=== PATIENT | female | born 1985 | race Caucasian/White ===

== ENCOUNTER 2017-05-28 11:03 | Emergency (ER) | payer BC ==
[2017-05-28 13:42] LABS: ABS Basophils 0 10^3/ul (0-0.2); ABS Eosinophils 0.1 10^3/ul (0-0.6); ABS Lymphocytes 1.6 10^3/ul (1.0-4.8); ABS Monocytes 0.8 10^3/ul (0-0.8); ABS Neutrophils 4.8 10^3/ul (1.5-7.7); ABS Nucleated RBC 0 10^3/ul; Hematocrit 42 % (35-47); Hemoglobin 13.8 g/dl (12.0-16.0); Lymphocyte % 21.9 % (25-47); Mean Corpuscular HGB Conc 33 g/dl (31-36); Mean Corpuscular Hemoglobin 32 pg (27-31); Mean Corpuscular Volume 97 fL (80-97); Mean Platelet Volume 8 um3 (7.4-10.4); Nucleated Red Blood Cells % 0; Platelet Count 173 10^3/ul (150-450); Red Blood Count 4.28 10^6/ul (4.0-5.4); Red Cell Distribution Width 13 % (10.5-15); White Blood Count 7.5 10^3/ul (3.5-10.8)
[2017-05-28] MEDS ORDERED: Ketorolac INJ* 30 MG/ML 1 ML VIAL IV ONE (13:53)
[2017-05-28 13:56] LABS: Urine Appearance Clear; Urine Blood 1+ (Negative); Urine Color Yellow; Urine Ketones 1+ (Negative); Urine Protein Negative (Negative); Urine Specific Gravity 1.017 (1.010-1.030); Urine Urobilinogen Negative (Negative)
[2017-05-28 14:00] LABS: EGFR Non-African American 124.7 (>60)
[2017-05-28] MEDS ORDERED: Ketorolac INJ* 30 MG/ML 1 ML VIAL ONE (14:16)
[2017-05-28 15:05] VITALS: BP 104/57
--- NOTE | 2017-05-28 15:41 | RAD ---
INDICATION: Right flank pain. COMPARISON: Correlation is made with a prior CT of the abdomen and pelvis from April 26, 2008. TECHNIQUE: Multiple real-time images of the right kidney were obtained. FINDINGS: The right kidney is normal in size shape and echogenicity. The kidney measured 9.4 x 3.0 x 4.9 cm. No significant focal abnormality or hydronephrosis was present. IMPRESSION: NEGATIVE EXAM, NO EVIDENCE FOR HYDRONEPHROSIS.
[2017-05-28] MEDS ORDERED: HYDROcodone/ACETAMIN 5-325 MG* 1 TAB PO ONE (16:36)
--- NOTE | 2017-05-28 17:24 | RAD ---
INDICATION: Left flank abdominal pain. COMPARISON: Comparison is made with a prior CT of the abdomen and pelvis from April 26 2008. TECHNIQUE: A CT scan of the abdomen and pelvis was performed without intravenous or oral contrast. Contiguous axial sections were obtained from the lung bases through the symphysis pubis. Images were reconstructed in the coronal and sagittal planes. FINDINGS: The lung bases are clear. No pleural effusion is present. The liver and spleen are within normal limits in size without significant focal abnormality on this noncontrast study. No calcified gallstones are seen. The pancreas appears to be within normal limits in size. The adrenal glands appear within normal limits. There is a small 1 mm calculus in the lower pole of the right kidney. There is prominent fat present in the central portions of both kidneys which appears to have progressed slightly from the prior exam most consistent with renal sinus lipomatosis. The left kidney is enlarged likely secondary to the fatty infiltration. No hydronephrosis is seen. The aorta is normal in caliber without significant calcific plaque. No significant enlarged retroperitoneal lymph nodes are seen. The stomach, small and large bowel appear nondistended. There are appendicoliths present. The appendix is otherwise unremarkable without evidence for inflammatory change. There are scattered diverticuli in the colon. There is no evidence for diverticulitis or colitis. The uterus is retroverted and slightly enlarged. There is a small amount of free intraperineal fluid in the cul-de-sac. No free intraperitoneal air is seen. No significant focal osseous abnormality is seen. IMPRESSION: 1. SMALL NONOBSTRUCTING RIGHT RENAL CALCULUS. 2. FINDINGS SUGGESTIVE OF RENAL SINUS LIPOMATOSIS WHICH HAS PROGRESSED SLIGHTLY FROM THE PRIOR STUDY. 3. NO EVIDENCE FOR ACUTE FINDING OR CAUSE FOR THE PATIENT'S ABDOMINAL PAIN IS SEEN.
--- NOTE | 2017-05-28 21:45 | ED ---
Jodi Jensen Julia, scribed for Carmelo Warner MD on 05/28/17 at 1343 . Abdominal Pain/Female - HPI Summary HPI Summary: This patient is a 32 year old F presenting to [facility] with a chief complaint of abdominal and back pain since 05/22/17. The patient rates the pain 7/10 in severity. She reports two recent urinalysis with trace amounts of blood. She was recently seen at Urgent Care and was diagnosed with muscle spasms and was given muscle relaxers. She saw her primary care physician, Dr. Jacome, on , who stated if symptoms persist she should come to the ED. Her LNMP was . There is a possibility of . - History of Current Complaint Chief Complaint: EDAbdPain Stated Complaint: FLANK PAIN Time Seen by Provider: 05/28/17 13:36 Hx Last Menstrual Period: 05/05/17 ?: No - Possibility of Onset/Duration: Lasting Weeks Timing: Weeks Pain Intensity: 7 Pain Scale Used: 0-10 Numeric Location: Diffuse - lower abdomen Radiates: Yes Radiates to: Back Associated Signs and Symptoms: Positive: Back Pain, Urinary Symptoms Allergies/Adverse Reactions: Allergies Allergy/AdvReac Type Severity Reaction Status Date / Time No Known Allergies Allergy Verified 05/18/13 22:12 PMH/Surg Hx/FS Hx/Imm Hx Opthamlomology History: Denies: Hx Legally Blind EENT History: Denies: Hx Deafness Psychiatric History: Reports: Hx Anxiety Infectious Disease History: No Infectious Disease History: Denies: Traveled Outside the [place] in Last 30 Days - Family History Known Family History: Positive: Diabetes, Other - kidney stones - Social History Alcohol Use: Occasionally Substance Use Type: Reports: None Smoking Status (MU): Never Smoked Tobacco Have You Smoked in the Last Year: No Review of Systems Positive: Abdominal Pain Positive: hematuria Positive: Myalgia - back pain All Other Systems Reviewed And Are Negative: Yes Physical Exam - Summary Physical Exam Summary: Appearance: The patient is well-nourished in no acute distress and in no acute pain. Skin: The skin is warm and dry and skin color reflects adequate perfusion. HEENT: The head is normocephalic and atraumatic. The pupils are equal and reactive. The conjunctivae are clear and without drainage. Nares are patent and without drainage. Mouth reveals moist mucous membranes and the throat is without erythema and exudate. The external ears are intact. The ear canals are patent and without drainage. The tympanic membranes are intact. Neck: the neck is supple with full range of motion and non-tender. There are no carotid bruits. There is no neck vein distension. Respiratory: Chest is non-tender. Lungs are clear to auscultation and breath sounds are symmetrical and equal. Cardiovascular: Heart is regular rate and rhythm. There is no murmur or rub auscultated. There is no peripheral edema and pulses are symmetrical and equal. Abdomen: The abdomen is soft with mild RLQ and R CVA tenderness. There are normal bowel sounds heard in all four quadrants and there is no organomegaly palpated. Musculoskeletal: There is R CVA tenderness noted. Extremities are non-tender with full range of motion. There is good capillary refill. There is no peripheral edema or calf tenderness elicited. Neurological: Patient is alert and oriented to person, place and time. The patient has symmetrical motor strength in all four extremities. Cranial nerves are grossly intact. Deep tendon reflexes are symmetrical and equal in all four extremities. Psychiatric: The patient has an appropriate affect and does not exhibit any anxiety or depression. Triage Information Reviewed: Yes Vital Signs On Initial Exam: Initial Vitals Temp Pulse Resp BP Pulse Ox 98.5 F 90 18 111/69 100 05/28/17 11:05 05/28/17 11:05 05/28/17 11:05 05/28/17 11:05 05/28/17 11:05 Vital Signs Reviewed: Yes Diagnostics - Vital Signs Vital Signs Temp Pulse Resp BP Pulse Ox 05/28/17 11:05 98.5 F 90 18 111/69 100 - Laboratory Lab Results: Lab Results 05/28/17 05/28/17 05/28/17 Range/Units 13:34 13:34 13:34 WBC 7.5 (3.5-10.8) 10^3/ul RBC 4.28 (4.0-5.4) 10^6/ul Hgb 13.8 (12.0-16.0) g/dl Hct 42 (35-47) % MCV 97 (80-97) fL MCH 32 H (27-31) pg MCHC 33 (31-36) g/dl RDW 13 (10.5-15) % Plt Count 173 (150-450) 10^3/ul MPV 8 (7.4-10.4) um3 Neut % (Auto) 64.5 (38-83) % Lymph % (Auto) 21.9 L (25-47) % [place] % (Auto) 11.1 H (0-7) % Eos % (Auto) 2.0 (0-6) % Baso % (Auto) 0.5 (0-2) % Absolute Neuts (auto) 4.8 (1.5-7.7) 10^3/ul Absolute Lymphs (auto) 1.6 (1.0-4.8) 10^3/ul Absolute Monos (auto) 0.8 (0-0.8) 10^3/ul Absolute Eos (auto) 0.1 (0-0.6) 10^3/ul Absolute Basos (auto) 0 (0-0.2) 10^3/ul Absolute Nucleated RBC 0 10^3/ul Nucleated RBC % 0 Sodium 132 L (133-145) mmol/L Potassium 4.0 (3.5-5.0) mmol/L Chloride 103 (101-111) mmol/L Carbon Dioxide 23 (22-32) mmol/L Anion Gap 6 (2-11) mmol/L BUN 11 (6-24) mg/dL Creatinine 0.56 (0.51-0.95) mg/dL Est GFR ( Amer) 160.3 (>60) Est GFR (Non-Af Amer) 124.7 (>60) BUN/Creatinine Ratio 19.6 (8-20) Glucose 85 (70-100) mg/dL Calcium 9.3 (8.6-10.3) mg/dL Total Bilirubin 0.70 (0.2-1.0) mg/dL AST 20 (13-39) U/L ALT 37 (7-52) U/L Alkaline Phosphatase 50 (34-104) U/L C-React Prot High Sens < 0.20 mg/L Total Protein 7.3 (6.4-8.9) g/dL Albumin 4.3 (3.2-5.2) g/dL Globulin 3.0 (2-4) g/dL Albumin/Globulin Ratio 1.4 (1-3) Lipase 21 (11.0-82.0) U/L Beta HCG, Quant < 0.60 mIU/mL Urine Color Yellow Urine Appearance Clear Urine pH 5.0 (5-9) Ur Specific [place] 1.017 (1.010-1.030) Urine Protein Negative (Negative) Urine Ketones 1+ A (Negative) Urine Blood 1+ A (Negative) Urine Nitrate Negative (Negative) Urine Bilirubin Negative (Negative) Urine Urobilinogen Negative (Negative) Ur Leukocyte Esterase Trace A (Negative) Urine WBC (Auto) Trace(0-5/hpf) (Absent) Urine RBC (Auto) Trace(0-2/hpf) (Absent) Ur Squamous Epith Cells Present A (Absent) Urine Bacteria Absent (Absent) Urine Glucose Negative (Negative) Urine Ascorbic Acid * A (Negative) Result Diagrams: 05/28/17 13:34 05/28/17 13:34 Lab Statement: Any lab studies that have been ordered have been reviewed, and results considered in the medical decision making process. - CT A/P CT Interpretation Completed By: Radiologist - 1. SMALL NONOBSTRUCTING RIGHT RENAL CALCULUS. 2. FINDINGS SUGGESTIVE OF RENAL SINUS LIPOMATOSIS WHICH HAS PROGRESSED SLIGHTLY FROM THE PRIOR STUDY. 3. NO EVIDENCE FOR ACUTE FINDING OR CAUSE FOR THE PATIENT'S ABDOMINAL PAIN IS SEEN. ED Physician has reviewed this report. - Additional Comments Diagnostic Additional Comments: Renal US reveals: NEGATIVE EXAM, NO EVIDENCE FOR HYDRONEPHROSIS. ED Physician has reviewed this report. Abdominal Pain Fem Course/Dx - Course Course Of Treatment: Ms. Albright presented with right flank and RLQ pain with only mild tenderness. She also had some mild left paralumber tenderness. Her W/U here was negative and I will treat her symptomatically and encourage close F/U. - Diagnoses Provider Diagnoses: Abdominal pain Discharge - Discharge Plan Condition: Stable Disposition: HOME Prescriptions: HYDROcodone/ACETAMIN 5-325 MG* [[place] 5-325 TAB*] 1 tab PO Q6H PRN #20 tab MDD 4 PRN Reason: Pain Patient Education Materials: Acute Abdominal Pain (ED) Referrals: Jacy Hood MD [Primary Care Provider] - 2 Days (Follow up with your primary care physician.) The documentation as recorded by the Jodi paul Julia accurately reflects the service I personally performed and the decisions made by me, Carmelo Warner MD.
== END 2017-05-28 18:10 | disposition home or self-care (01) ==
LOC: ED 11:03
DX: R10.31 Right lower quadrant pain (principal); N20.0 Calculus of kidney; F41.9 Anxiety disorder, unspecified
CPT/HCPCS: 36415; 74176; 76775; 80053; 81003; 81015; 83690; 84702; 85025; 86141; 87086; 96374; 99282; J1885

== ENCOUNTER 2017-09-17 17:41 | Emergency (ER) | payer BC ==
[2017-09-17 18:18] LABS: ABS Basophils 0 10^3/ul (0-0.2); ABS Eosinophils 0 10^3/ul (0-0.6); ABS Lymphocytes 1.8 10^3/ul (1.0-4.8); ABS Monocytes 0.8 10^3/ul (0-0.8); ABS Neutrophils 4.1 10^3/ul (1.5-7.7); ABS Nucleated RBC 0 10^3/ul; Eosinophil % 0.6 % (0-6); Hematocrit 36 % (35-47); Hemoglobin 12.4 g/dl (12.0-16.0); Lymphocyte % 26.4 % (25-47); Mean Corpuscular HGB Conc 34 g/dl (31-36); Mean Corpuscular Hemoglobin 33 pg (27-31); Mean Corpuscular Volume 97 fL (80-97); Nucleated Red Blood Cells % 0; Platelet Count 174 10^3/ul (150-450); Red Blood Count 3.72 10^6/ul (4.00-5.40); Red Cell Distribution Width 13 % (10.5-15); White Blood Count 6.7 10^3/ul (3.5-10.8)
--- NOTE | 2017-09-17 18:19 | ED ---
- HPI Summary HPI Summary: 32 year old female last menstrual period July 29 presents with vaginal bleeding and back pain since today. She admits to nauseous. She is a little bit dizzy. No vomiting. No diarrhea or constipation. No urinary symptoms. She states she does not have abdominal pain but has pain on left side of her back. No previous belly surgeries. She states that she soaked a pad in the past 2 hours. no injury. unsure what blood type is. - History of Current Complaint Chief Complaint: EDVaginalBleeding Stated Complaint: ABD PAIN/ BLEEDING/7WKS PREG. Time Seen by Provider: 09/17/17 17:58 Pain Intensity: 8 - Assessment Hx Now: Yes SAB: 0 IEA: 0 - Additional Pertinent History Maternal Blood Type and Rh: O Positive - Allergies/Home Medications Allergies/Adverse Reactions: Allergies Allergy/AdvReac Type Severity Reaction Status Date / Time No Known Allergies Allergy Verified 09/17/17 17:52 PMH/Surg Hx/FS Hx/Imm Hx Endocrine/Hematology History: Denies: Hx Anticoagulant Therapy Cardiovascular History: Denies: Hx Hypertension Sensory History: Denies: Hx Legally Blind, Hx Deafness Opthamlomology History: Denies: Hx Legally Blind Psychiatric History: Reports: Hx Anxiety Infectious Disease History: No Infectious Disease History: Denies: Traveled Outside the [place] in Last 30 Days - Family History Known Family History: Positive: Diabetes, Other - kidney stones - Social History Alcohol Use: Occasionally Substance Use Type: Reports: None Smoking Status (MU): Never Smoked Tobacco Have You Smoked in the Last Year: No Review of Systems Negative: Fever Negative: Chest Pain Negative: Shortness Of Breath Positive: Nausea, Other - vaginal bleeding. Negative: Abdominal Pain, Vomiting Positive: flank pain All Other Systems Reviewed And Are Negative: Yes Physical Exam - Physical Exam Triage Information Reviewed: Yes Vital Signs Reviewed: Yes Appearance: Positive: Well-Appearing Skin: Positive: Warm, Dry Head/Face: Positive: Normal Head/Face Inspection Eyes: Positive: Normal, Conjunctiva Clear ENT: Positive: Pharynx normal Respiratory/Lung Sounds: Positive: Clear to Auscultation, Breath Sounds Present Cardiovascular: Positive: Normal, RRR Abdomen Description: Positive: Nontender, Soft, Other: - tenderness left lower back Bowel Sounds: Positive: Present Pelvic Exam: External Exam Normal, Bimanual Exam Normal, No Cerv. Motion Tender , Blood, Other - os is closed with blood dripping from such Musculoskeletal: Positive: Normal Neurological: Positive: Normal Psychiatric: Positive: Normal Diagnostics - Vital Signs Vital Signs Temp Pulse Resp BP Pulse Ox 09/17/17 17:48 99.1 F 80 14 95/57 100 - Laboratory Result Diagrams: 09/17/17 18:12 09/17/17 18:12 Lab Statement: Any lab studies that have been ordered have been reviewed, and results considered in the medical decision making process. - Ultrasound No standard instances Ultrasound Interpretation: Positive (See Comments) - 1. There is a trace subchorionic bleed along the fundal margin of the gestational sac. 2. Otherwise single live intrauterine gestation with a crown-rump length yielding a gestational age of 6 weeks and 3 days. Ultrasound Interpretation Completed By: Radiologist Re-Evaluation - Re-Evaluation First Eval Re-Evaluation Time: 18:30 Change: Worse Comment: is now vomiting Second Eval Re-Evaluation Time: 19:54 Change: Improved Comment: nausea is less but not completely done Course/Dx - Course Course Of Treatment: 32 year old female last menstrual period July 29 presents with vaginal bleeding and back pain since today. She admits to nauseous. She is a little bit dizzy. No vomiting. No diarrhea or constipation. No urinary symptoms. She states she does not have abdominal pain but has pain on left side of her back. No previous belly surgeries. She states that she soaked a pad in the past 2 hours. no injury. unsure what blood type is. on exam has nontender abdomen. tenderness left side of back. wbc normal. h/h normal. hcg 42820. O positive blood type. u/s shows trace chorionic bleed. single live intruaterin gestation. corpus luetum on left which would explain back pain. will give reglan for nausea. will have follow up with ob to trend . patient understand and agrees with plan. - Differential Diagnosis/HQI/PQRI: Ectopic , Intrauterine , Ovarian Cyst - Diagnoses Provider Diagnoses: Intrauterine , Subchorionic bleed Discharge - Sign-Out/Discharge Documenting (check all that apply): Discharge/Admit/Transfer - Discharge Plan Condition: Good Disposition: HOME Patient Education Materials: Subchorionic Hemorrhage (ED) Referrals: Jacy Hood MD [Primary Care Provider] - Beatriz Ha MD [Medical Doctor] - Additional Instructions: take reglan every 6 hours for nausea Follow up with OBGYN as will need repeat HCG level drawn to trend Return to ED if develop any new or worsening symptoms - Billing Disposition and Condition Condition: GOOD Disposition: Home
[2017-09-17 18:30] LABS: INR 1.02 (0.77-1.02)
[2017-09-17] MEDS ORDERED: NS 0.9% 1000 ML* 1,000 ML IV ONE (18:32)
[2017-09-17 18:36] LABS: EGFR Non-African American 117.4 (>60)
[2017-09-17] MEDS ORDERED: Metoclopramide IV* 5 MG/ML 2 ML VIAL IV SLOW PU ONE (18:39)
[2017-09-17] MEDS ORDERED: diPHENhydraMINE IV* 50 MG/ML 1 ml VIAL (BENADRYL) IV ONE (19:40)
--- NOTE | 2017-09-17 19:52 | RAD ---
HISTORY: Back pain and vaginal bleeding in a female. Last menstrual period is reported to be July 29, 2017 yielding a gestational age of 7 weeks and 1 day COMPARISONS: None TECHNIQUE: Multiple transverse and longitudinal ultrasound images were obtained of the pelvis using grayscale, color flow, spectral and M-mode sonographic imaging. FINDINGS: UTERUS: The uterus is normal in shape, size, contour, and echotexture. GESTATION: There is a single live intrauterine gestation. The crown-rump length measures 0.6 cm yielding a gestational age of 6 weeks and 3 days. The mean gestational sac diameter measures 1.9 centimeters yielding a gestational age of 6 weeks and 6 days. There is a trace amount of subchorionic fluid along the fundal margin of the chorionic sac. cardiac motion is detected at a rate of 133 beats per minute. CUL-DE-SAC: There is no free fluid within the cul-de-sac. RIGHT OVARY: The right ovary measures 3.2 x 1.5 x 2.9 cm. LEFT OVARY: The left ovary measures 3.1 x 2.1 x 3.5 cm. And the left ovary there is an anechoic and low echogenicity structure measuring 1.5 cm in greatest dimension most consistent with a corpus luteum. IMPRESSION: 1. There is a trace subchorionic bleed along the fundal margin of the gestational sac. 2. Otherwise single live intrauterine gestation with a crown-rump length yielding a gestational age of 6 weeks and 3 days.
[2017-09-17 21:11] VITALS: BP 95/59
== END 2017-09-17 20:50 | disposition home or self-care (01) ==
LOC: ED 17:41
DX: O20.9 Hemorrhage in early pregnancy, unspecified (principal); R11.0 Nausea; R42 Dizziness and giddiness; Z3A.01 Less than 8 weeks gestation of pregnancy; F41.9 Anxiety disorder, unspecified; Z84.1 Family history of disorders of kidney and ureter
CPT/HCPCS: 36415; 76817; 80053; 84702; 85025; 85610; 85730; 86900; 86901; 87480; 87491; 87510; 87591; 87661; 96374; 96375; 99283; J1200; J2765

== ENCOUNTER 2017-09-27 09:42 | Emergency (ER) | payer BC ==
[2017-09-27] MEDS ORDERED: NS 0.9% 1000 ML* 1,000 ML IV ONE ×2 (10:00→11:09)
[2017-09-27] MEDS ORDERED: Ondansetron ODT TAB* 4 MG PO ONE (10:06)
[2017-09-27] MEDS ORDERED: Ondansetron INJ* 2 MG/ML VIAL ONE (10:08)
[2017-09-27 10:17] LABS: ABS Basophils 0 10^3/ul (0-0.2); ABS Eosinophils 0.2 10^3/ul (0-0.6); ABS Lymphocytes 1.7 10^3/ul (1.0-4.8); ABS Monocytes 0.8 10^3/ul (0-0.8); ABS Neutrophils 4.6 10^3/ul (1.5-7.7); ABS Nucleated RBC 0 10^3/ul; Eosinophil % 2.2 % (0-6); Hematocrit 40 % (35-47); Hemoglobin 13.6 g/dl (12.0-16.0); Lymphocyte % 23.3 % (25-47); Mean Corpuscular HGB Conc 34 g/dl (31-36); Mean Corpuscular Hemoglobin 33 pg (27-31); Mean Corpuscular Volume 97 fL (80-97); Mean Platelet Volume 8.1 um3 (7.4-10.4); Nucleated Red Blood Cells % 0.1; Platelet Count 209 10^3/ul (150-450); Red Blood Count 4.15 10^6/ul (4.00-5.40); Red Cell Distribution Width 12 % (10.5-15); White Blood Count 7.2 10^3/ul (3.5-10.8)
[2017-09-27 10:27] LABS: Urine Appearance Cloudy; Urine Blood Negative (Negative); Urine Color Yellow; Urine Ketones 1+ (Negative); Urine Protein 1+(30 mg/dL) (Negative); Urine Red Blood Cell 1+(3-5/hpf) (Absent); Urine Specific Gravity 1.016 (1.010-1.030); Urine Urobilinogen Positive (Negative); Urine White Blood Cell Trace(0-5/hpf) (Absent)
[2017-09-27 10:34] LABS: EGFR Non-African American 135.8 (>60)
[2017-09-27 12:23] VITALS: BP 105/59
--- NOTE | 2017-09-27 13:03 | ED ---
- HPI Summary HPI Summary: Pt. is a 32 year-old female who presents emergency department for nausea and vomiting times several days. Patient is currently 8 weeks gestation. She was seen in the ER 10 days ago abdominal pain and 10 days ago and had a confirmed intrauterine ultrasound done at that time. She was rx reglan at her last ER visit which is not improving symptoms. She has also tried OTC benadryl and unisom which she states are not helping. Today she denies any abdominal pain /cramping, vaginal bleeding or discharge. Symptoms are moderate in severity. No current modifying factors. - History of Current Complaint Chief Complaint: EDGeneral Stated Complaint: POSS DEHYDRATION/ 8 WKS PREG Time Seen by Provider: 09/27/17 10:00 Hx Obtained From: Patient Pain Intensity: 0 - Assessment Hx Now: Yes SAB: 0 IEA: 0 - Additional Pertinent History Maternal Blood Type and Rh: O Positive - Allergies/Home Medications Allergies/Adverse Reactions: Allergies Allergy/AdvReac Type Severity Reaction Status Date / Time No Known Allergies Allergy Verified 09/27/17 09:54 PMH/Surg Hx/FS Hx/Imm Hx Previously Healthy: Yes Endocrine/Hematology History: Denies: Hx Anticoagulant Therapy Cardiovascular History: Denies: Hx Hypertension Sensory History: Denies: Hx Legally Blind, Hx Deafness Opthamlomology History: Denies: Hx Legally Blind Psychiatric History: Reports: Hx Anxiety Infectious Disease History: No Infectious Disease History: Denies: Traveled Outside the [place] in Last 30 Days - Family History Known Family History: Positive: Diabetes, Other - kidney stones - Social History Alcohol Use: None Substance Use Type: Reports: None Smoking Status (MU): Never Smoked Tobacco Have You Smoked in the Last Year: No Review of Systems Constitutional: Negative Positive: Vomiting, Nausea. Negative: Abdominal Pain, Diarrhea Genitourinary: Negative Positive: burning, dysuria, discharge, flank pain All Other Systems Reviewed And Are Negative: Yes Physical Exam - Physical Exam Triage Information Reviewed: Yes Vital Signs Reviewed: Yes Appearance: Positive: Well-Appearing - Pt. lying in bed in NAD. Skin: Positive: Warm, Dry Head/Face: Positive: Normal Head/Face Inspection Eyes: Positive: Normal Neck: Positive: Supple Respiratory/Lung Sounds: Positive: Clear to Auscultation, Breath Sounds Present Cardiovascular: Positive: Normal, RRR Abdomen Description: Positive: Nontender, Soft Neurological: Positive: Normal, CN Intact II-III Psychiatric: Positive: Affect/Mood Appropriate Diagnostics - Vital Signs Vital Signs Temp Pulse Resp BP Pulse Ox 09/27/17 12:32 99.1 F 76 15 105/59 99 09/27/17 12:17 76 105/59 99 09/27/17 12:00 79 100 09/27/17 11:47 74 89/62 100 09/27/17 11:16 70 104/59 100 09/27/17 11:00 62 100 09/27/17 10:47 73 96/47 100 09/27/17 10:18 65 100 09/27/17 10:17 61 100/58 100 09/27/17 09:45 99.1 F 90 18 104/64 100 - Laboratory Lab Results: Lab Results 09/27/17 09/27/17 09/27/17 Range/Units 10:04 10:08 10:08 WBC 7.2 (3.5-10.8) 10^3/ul RBC 4.15 (4.00-5.40) 10^6/ul Hgb 13.6 (12.0-16.0) g/dl Hct 40 (35-47) % MCV 97 (80-97) fL MCH 33 H (27-31) pg MCHC 34 (31-36) g/dl RDW 12 (10.5-15) % Plt Count 209 (150-450) 10^3/ul MPV 8.1 (7.4-10.4) um3 Neut % (Auto) 63.5 (38-83) % Lymph % (Auto) 23.3 L (25-47) % [place] % (Auto) 10.5 H (0-7) % Eos % (Auto) 2.2 (0-6) % Baso % (Auto) 0.5 (0-2) % Absolute Neuts (auto) 4.6 (1.5-7.7) 10^3/ul Absolute Lymphs (auto) 1.7 (1.0-4.8) 10^3/ul Absolute Monos (auto) 0.8 (0-0.8) 10^3/ul Absolute Eos (auto) 0.2 (0-0.6) 10^3/ul Absolute Basos (auto) 0 (0-0.2) 10^3/ul Absolute Nucleated RBC 0 10^3/ul Nucleated RBC % 0.1 Sodium 135 (135-145) mmol/L Potassium 3.7 (3.5-5.0) mmol/L Chloride 102 (101-111) mmol/L Carbon Dioxide 25 (22-32) mmol/L Anion Gap 8 (2-11) mmol/L BUN 8 (6-24) mg/dL Creatinine 0.52 (0.51-0.95) mg/dL Est GFR ( Amer) 164.3 (>60) Est GFR (Non-Af Amer) 135.8 (>60) BUN/Creatinine Ratio 15.4 (8-20) Glucose 105 H (70-100) mg/dL Calcium 9.5 (8.6-10.3) mg/dL Urine Color Yellow Urine Appearance Cloudy Urine pH 7.0 (5-9) Ur Specific [place] 1.016 (1.010-1.030) Urine Protein 1+(30 mg/dl) A (Negative) Urine Ketones 1+ A (Negative) Urine Blood Negative (Negative) Urine Nitrate Negative (Negative) Urine Bilirubin Negative (Negative) Urine Urobilinogen Positive A (Negative) Ur Leukocyte Esterase Negative (Negative) Urine WBC (Auto) Trace(0-5/hpf) (Absent) Urine RBC (Auto) 1+(3-5/hpf) A (Absent) Ur Squamous Epith Cells Present A (Absent) Urine Bacteria Absent (Absent) Urine Glucose Negative (Negative) Result Diagrams: 09/27/17 10:08 09/27/17 10:08 Lab Statement: Any lab studies that have been ordered have been reviewed, and results considered in the medical decision making process. Course/Dx - Course Course Of Treatment: Patient presenting to the ER for nausea and vomiting in early . She is afebrile with stable vital signs. She has been taking Reglan, Benadryl, Unisom with no relief. She has no abdominal pain today, vaginal bleeding or discharge. Will hydrate and check basic labs. Given a dose of Zofran. CBC and BMP are unremarkable. Urinalysis shows small ketones, RBCs, epi cells, will send for culture. She was hydrated with 2 L of normal saline. On reexamination she is tolerating by mouth fluids and is feeling better. Results were discussed. Discharge her home with a daily prescription of Zofran. Advised to call her OB for a close follow-up appointment. To return to the ER if symptoms change or worsen. Patient understands and agrees with plan. - Differential Diagnosis/HQI/PQRI: Intrauterine , Hyperemesis Gravidarum , UTI, Vaginal Bleeding - Diagnoses Provider Diagnoses: Hyperemesis gravidarum Discharge - Sign-Out/Discharge Documenting (check all that apply): Patient Departure - Discharge Plan Condition: Good Disposition: HOME Prescriptions: Ondansetron HCl [Zofran] 4 mg PO Q6H #12 tablet Patient Education Materials: Hyperemesis Gravidarum (ED) Referrals: Jacy Hood MD [Primary Care Provider] - Additional Instructions: Call your OB tomorrow to schedule a sooner appointment Take zofran as directed Increased fluids Return to ER if symptoms change or worsen - Billing Disposition and Condition Condition: GOOD Disposition: Home
== END 2017-09-27 12:32 | disposition home or self-care (01) ==
LOC: ED 09:42
DX: O21.0 Mild hyperemesis gravidarum (principal); R30.0 Dysuria; Z3A.08 8 weeks gestation of pregnancy; F41.9 Anxiety disorder, unspecified; Z83.3 Family history of diabetes mellitus; Z84.1 Family history of disorders of kidney and ureter
CPT/HCPCS: 36415; 80048; 81003; 81015; 85025; 87086; 96360; 99283; J2405

== ENCOUNTER 2017-10-08 09:27 | Day surgery (SDC) | payer BC, OTHER ==
[~2017-10-08 09:27] MED LIST: Buffered Lidocaine 0.9% SYRIN* 5 ML/SYR SYRINGE INTRADERM ONE
[2017-10-08] MEDS ORDERED: Ketorolac INJ* 30 MG/ML 1 ML VIAL ONE (09:30)
[2017-10-08 10:02] LABS: ABS Basophils 0 10^3/ul (0-0.2); ABS Eosinophils 0.1 10^3/ul (0-0.6); ABS Lymphocytes 1.5 10^3/ul (1.0-4.8); ABS Monocytes 0.8 10^3/ul (0-0.8); ABS Neutrophils 6.3 10^3/ul (1.5-7.7); ABS Nucleated RBC 0 10^3/ul; Eosinophil % 1.5 % (0-6); Hematocrit 38 % (35-47); Hemoglobin 13.2 g/dl (12.0-16.0); Lymphocyte % 17.3 % (25-47); Mean Corpuscular HGB Conc 35 g/dl (31-36); Mean Corpuscular Hemoglobin 33 pg (27-31); Mean Corpuscular Volume 96 fL (80-97); Nucleated Red Blood Cells % 0; Platelet Count 212 10^3/ul (150-450); Red Blood Count 3.95 10^6/ul (4.00-5.40); Red Cell Distribution Width 13 % (10.5-15); White Blood Count 8.8 10^3/ul (3.5-10.8)
[2017-10-08] MEDS ORDERED: Lidocaine 1%* 5 ML VIAL ONE (10:17)
[2017-10-08] MEDS ORDERED: fentaNYL* 50 MCG/ML 2 ML VIAL (100 MCG VIAL) ONE ×2 (10:25→10:31)
[2017-10-08] MEDS ORDERED: Propofol* 10 MG/ML 20 ML BTL IV PUSH ONE (10:28)
[2017-10-08] MEDS ORDERED: Lidocaine 2% PF * 5 ML VIAL ONE (10:28)
[2017-10-08] MEDS ORDERED: Midazolam* 1 MG/ML 2 ML VIAL (2 MG) ONE (10:31)
[2017-10-08] MEDS ORDERED: Propofol* 500 MG/50 ML BTL ONE (10:33)
[2017-10-08] MEDS ORDERED: Scopolamine 1.5 mg* PATCH ONE (10:51)
[2017-10-08] MEDS ORDERED: oxyCODONE/Acetamin 5/325 MG* TAB ONE (12:10)
[2017-10-08 13:04] VITALS: BP 96/62
--- NOTE | 2017-10-08 21:56 | OP ---
OPERATIVE REPORT: DATE OF OPERATION: 10/08/17 DATE OF : 83 SURGEON: Wilber Matos MD ANESTHESIA: General endotracheal tube. PRE-OP DIAGNOSIS: Missed . POST-OP DIAGNOSIS: Missed . OPERATIVE PROCEDURE: Dilation and curettage. ESTIMATED BLOOD LOSS: 50 cc. SPECIMEN: Includes products of conception. FINDINGS: On exam under anesthesia, the uterus was retroverted. No adnexal masses. Cervix, vagina, and vulva appeared normal. DESCRIPTION OF PROCEDURE: The patient identified, procedure identified as a D and C. The patient wa s taken to the operating room, prepped and draped in the usual fashion in dorsal lithotomy position u nder general anesthesia. Two single-tooth tenaculum were placed on the anterior lip of the cervix. Cervix was dilated up to a #30 Jeremiah dilator. The suction curette was inserted and suction curettage performed. A sharp curette was inserted and sharp curettage performed until a gritty sensation was f elt throughout the circumference. The suction curette was reinserted and no further tissue was obtai luci. Good hemostasis was verified. All instruments were removed from the vagina and the patient ret urned to recovery room in stable condition. All sponge and instrument counts were correct. [id number]/[facility] #: [id number]
== END 2017-10-08 13:20 | disposition home or self-care (01) ==
LOC: OR 09:27
PROVIDERS: ATTEND Obstetrics & Gynecology
DX: O02.1 Missed abortion (principal); F41.9 Anxiety disorder, unspecified; Z87.442 Personal history of urinary calculi; Z87.891 Personal history of nicotine dependence
CPT/HCPCS: 36415; 85025; 86850; 86900; 86901; 88305; A9270-GY; J1885; J2250; J2704; J3010

== ENCOUNTER 2018-03-02 09:43 | Emergency (ER) | payer BC, OTHER ==
--- NOTE | 2018-03-02 11:40 | UC ---
Complaint Female HPI - HPI Summary HPI Summary: 32 y/o female presents to the urgent care c/o left ear pain since Thursday and frequency and burning on urination since Thursday02/26/2018. Pt reports burning w/ urination is mild. But the ear pain was severe last night, 09/22. She took and Ibuprofen 600mg PO yesterday and this morning. Pt report she had a miscarriage in 08/2017. She states Hx of uti and pyelonephritis in the past. She has seen Urologist Dr Grant for hematuria and has a f/u appt in 05/2018. Pt denies fever, dizziness, NASCIMENTO, SOB, chest pain, abdominal pain,pelvic pain, flank pain, Vaginal discharge, N/v/d, Hx of STD's. LMP: 02/17/2018 w/ regular menstrual cycles. - History Of Current Complaint Chief Complaint: UCEar Stated Complaint: EAR PAIN Time Seen by Provider: 03/02/18 11:16 Hx Obtained From: Patient Hx Last Menstrual Period: 02/17/18 ?: No Onset/Duration: Gradual Onset, Lasting Days - 5 days, Still Present, Worse Since - 3 days w/ RT ear pain Timing: Intermittent, Lasting Seconds Severity Initially: Mild Severity Currently: Moderate Pain Intensity: 7 - ear pain Pain Scale Used: 0-10 Numeric Character: Burning Aggravating Factor(s): Urination Alleviating Factor(s): Position Associated Signs And Symptoms: Positive: Negative. Negative: Fever, Back Pain, Vaginal Bleeding/Discharge, Vaginal Discharge, Nausea, Vomiting(# Of Episodes =) , Genital Swelling, Genital Blisters, Retained Foregin Body (Specify) - Risk Factors Ectopic Risk Factor: Negative Ovarian Torsion Risk Factor: Negative - Allergies/Home Medications Allergies/Adverse Reactions: Allergies Allergy/AdvReac Type Severity Reaction Status Date / Time No Known Allergies Allergy Verified 03/02/18 10:06 Home Medications: Home Medications clonazePAM [Clonazepam] 0.5 mg PO 03/02/18 [History] PMH/Surg Hx/FS Hx/Imm Hx Previously Healthy: Yes Respiratory History: Asthma - controlled Other History Of: Negative For: Anticoagulant Therapy - Surgical History Surgical History: None - Family History Known Family History: Positive: Hypertension, Diabetes, Other - kidney stones - Social History Occupation: Employed Full-time Lives: With Family Alcohol Use: Occasionally Substance Use Type: None Smoking Status (MU): Never Smoked Tobacco Have You Smoked in the Last Year: No - Immunization History Most Recent Influenza Vaccination: 01/26 Most Recent Tetanus Shot: 02/25 Most Recent Pneumonia Vaccination: na Review of Systems All Other Systems Reviewed And Are Negative: Yes Constitutional: Positive: Negative Skin: Positive: Negative Eyes: Positive: Negative ENT: Positive: Ear Ache - RT ear pain, Nasal Discharge - clear, Sinus Congestion Respiratory: Positive: Negative Cardiovascular: Positive: Negative Gastrointestinal: Positive: Negative Genitourinary: Positive: Dysuria, Frequency, Urgency Motor: Positive: Negative Neurovascular: Positive: Negative Musculoskeletal: Positive: Negative Neurological: Positive: Negative Psychological: Positive: Negative Is Patient Immunocompromised?: No Physical Exam - Summary Physical Exam Summary: VITAL SIGNS: Reviewed. GENERAL: Patient is a well developed and nourished thin female who is sitting comfortable in the examining table. Patient is not in any acute respiratory distress. HEAD AND FACE: No signs of trauma. No ecchymosis, hematomas or skull depressions. No sinus tenderness. EYES: PERRLA, EOMI x 2, No injected conjunctiva, clear watery eyes, no nystagmus. No photophobia. EARS: Hearing grossly intact. Ear canals and RT TM injected w/ erythema, no drainage obeserve. LF TM WNL. MOUTH: pharynx with no erythema, no exudates,no palatal petechiae. no B/L tonsillar enlargement Uvula in midline. NECK: Supple, trachea is midline, no lymphadenopathy, no JVD, no carotid bruit, no c-spine tenderness, neck with full ROM. CHEST: Symmetric, no tenderness at palpation LUNGS: Clear to auscultation bilaterally. No wheezing or crackles. CVS: Regular rate and rhythm, S1 and S2 present, no murmurs or gallops appreciated. ABDOMEN: Soft, non-tender. No signs of distention. No rebound no guarding, and no masses palpated. Bowel sounds are normal. BACK:no scoliosis or lesions, non tender to palpation, No B/L CVA tenderness EXTREMITIES: FROM in all major joints, no edema, no cyanosis or clubbing. NEURO: Alert and oriented x 3. No acute neurological deficits. Speech is normal and follows commands. SKIN: Dry and warm Triage Information Reviewed: Yes Vital Signs: Initial Vital Signs Temp 95.8 F 03/02/18 10:02 Pulse 75 03/02/18 10:02 Resp 18 03/02/18 10:02 BP 108/57 03/02/18 10:02 Pulse Ox 100 03/02/18 10:02 Complaint Female Dx - Course Course Of Treatment: 32 y/o female presents to the urgent care c/o left ear pain since Thursday02/28/2018 and frequency and burning on urination since Thursday02/26/2018. Pt reports burning w/ urination is mild. But the ear pain was severe last night, 09/22. She took and Ibuprofen 600mg PO yesterday and this morning. Pt report she had a miscarriage in 08/2017. She states Hx of uti and pyelonephritis in the past. She has seen Urologist Dr Grant for hematuria and has a f/u appt in 05/2018. Pt denies fever, dizziness, NASCIMENTO, SOB, chest pain, abdominal pain,pelvic pain, flank pain, Vaginal discharge, N/v/d, Hx of STD's. LMP: 02/17/2018 w/ regular menstrual cycles. Pt w/ Dysuria and left otitis Media on examination. UA ordered: Ptotein; trace, glucose;trace, ketones;3+, blood 1+ and bilirubin1+. FSmg/dl. Pt Strongly advised to increase hydration since ketone present. Pt is hemodynamically stable, No CVA tenderness and is being managed by urologyst DR Grant for her hematuria. Pt advised to f/u w/ him in 1 week for further management. Pt Rx Pyridium PO for dysuria and Amoxicillin PO for her otitis Media. Urine sent for culture to r/o any abnormality. D/c instructions explained. Pt understood and agreed w/ plan of care. - Differential Dx/Diagnosis Differential Diagnosis/HQI/PQRI: Cervicitis, Renal Colic, Ureteral Stone, Urinary Tract Infection, Other - otitis externa, otitis media, ear perforation, cerumen impaction, URI Provider Diagnosis: Otitis media, left, Dysuria, Hematuria Discharge - Sign-Out/Discharge Documenting (check all that apply): Patient Departure - d/c home All imaging exams completed and their final reports reviewed: No Studies - Discharge Plan Condition: Stable Disposition: HOME Prescriptions: Amoxicillin PO (*) [Amoxicillin 400 MG/5 ML SUSP*] 11 ml PO BID #154 ml Phenazopyridine TAB* [Pyridium 100 mg TAB*] 100 mg PO TID #6 tab Patient Education Materials: Ear Infection (ED), Hematuria (ED), Dysuria (ED) Referrals: Jacy Hood MD [Primary Care Provider] - 3 Days Malik Gunn MD [Medical Doctor] - 1 Week Additional Instructions: 1- Please Pyridium 100 mg PO TID x 2 days to alleviate urinary symptoms. INCREASE FLUID INTAKE SINCE YOUR URINE PRESENTS W/ KETONES, drink cranberry juice. 2-Take Amoxicillin PO to alleviate Otitis Media. Continue taken Ibuprofen PO after meals to alleviate otalgia. 3- You rurine presents w/ hematuria, protein and glucose. Please f/u w/ your Urologist DR Gunn in 1 week for further evaluation and treatment. 4- Urine sent for culture if any abnormality, you will be notified for further treatment. 5-If symptoms do not improve please return to the urgent care or f/u with her PCP. - Billing Disposition and Condition Condition: STABLE Disposition: Home
[2018-03-02 12:03] VITALS: BP 99/61
== END 2018-03-02 13:07 | disposition home or self-care (01) ==
LOC: UCEAST 09:43
DX: H66.92 Otitis media, unspecified, left ear (principal); R30.0 Dysuria; R31.9 Hematuria, unspecified
CPT/HCPCS: 81003; 84702; 87086; 99212; G0463

== ENCOUNTER 2018-03-30 16:51 | Observation (INO) | payer OTHER ==
[2018-03-30] MEDS ORDERED: NS 0.9% 1000 ML* 1,000 ML IV ONE ×2 (18:41→21:11)
[2018-03-30] MEDS ORDERED: Morphine VIAL* 10 MG/ML 1 ML VIAL IV ONE ×2 (18:41→21:11)
[2018-03-30] MEDS ORDERED: Ondansetron INJ* 2 MG/ML VIAL IV ONE (18:41)
[2018-03-30 19:04] LABS: Urine Color Yellow
[2018-03-30 19:06] LABS: Urine Appearance Clear; Urine Bacteria Absent (Absent); Urine Bilirubin Negative (Negative); Urine Blood 1+ (Negative); Urine Glucose Negative (Negative); Urine Ketones Negative (Negative); Urine Nitrite Negative (Negative); Urine Protein Negative (Negative); Urine Red Blood Cell 2+(6-10/hpf) (Absent); Urine Specific Gravity 1.025 (1.010-1.030); Urine Urobilinogen Positive (Negative); Urine White Blood Cell Trace(0-5/hpf) (Absent)
[2018-03-30 19:06] LABS: ABS Basophils 0.1 10^3/ul (0-0.2); ABS Eosinophils 0.1 10^3/ul (0-0.6); ABS Lymphocytes 2.2 10^3/ul (1.0-4.8); ABS Monocytes 1.2 10^3/ul (0-0.8); ABS Neutrophils 7.7 10^3/ul (1.5-7.7); ABS Nucleated RBC 0 10^3/ul; Hematocrit 35 % (35-47); Hemoglobin 11.7 g/dl (12.0-16.0); Lymphocyte % 19.3 %; Mean Corpuscular HGB Conc 34 g/dl (31-36); Mean Corpuscular Hemoglobin 32 pg (27-31); Mean Corpuscular Volume 97 fL (80-97); Mean Platelet Volume 8.1 fL (7.4-10.4); Nucleated Red Blood Cells % 0; Platelet Count 213 10^3/ul (150-450); Red Blood Count 3.59 10^6/ul (4.00-5.40); Red Cell Distribution Width 13 % (10.5-15); White Blood Count 11.2 10^3/ul (3.5-10.8)
[2018-03-30 19:29] LABS: Albumin 4.2 g/dL (3.2-5.2); BUN/Creatinine Ratio 25.4 (8-20); EGFR Non-African American 117.4 (>60); Globulin 2.1 g/dL (2-4); Potassium 3.7 mmol/L (3.5-5.0); Total Bilirubin 0.7 mg/dL (0.2-1.0); Total Protein 6.3 g/dL (6.4-8.9)
[2018-03-30 19:31] LABS: HCG Pregnancy 1174.88 mIU/mL
[2018-03-30 19:54] LABS: C Reactive Protein 1.21 mg/L (<8.01)
[2018-03-30] MEDS ORDERED: KETAMINE HCL* 50 MG/ML 10 ML VIAL ONE (23:16)
[2018-03-30] MEDS ORDERED: Midazolam* 1 MG/ML 5 ML VIAL (5 MG) ONE (23:16)
[2018-03-30] MEDS ORDERED: Cisatracurium* 2 MG/ML MDV 5 ML ONE (23:16)
[2018-03-30] MEDS ORDERED: Ondansetron INJ* 2 MG/ML VIAL ONE (23:16)
[2018-03-30] MEDS ORDERED: Lidocaine 2% PF * 5 ML VIAL ONE (23:16)
[2018-03-30] MEDS ORDERED: Ketorolac INJ* 30 MG/ML 1 ML VIAL ONE (23:16)
[2018-03-30] MEDS ORDERED: fentaNYL* 50 MCG/ML 2 ML VIAL (100 MCG VIAL) ONE (23:16)
[2018-03-30] MEDS ORDERED: Propofol* 10 MG/ML 20 ML BTL ONE (23:16)
[2018-03-30] MEDS ORDERED: Dexamethasone IV* 4 MG/ML 1 ML (4 MG) ONE (23:16)
[2018-03-30] MEDS ORDERED: ceFOXitin 2 GM IVPREMIX* 2 GM/50 ML BAG ONE (23:17)
[2018-03-30] MEDS ORDERED: Scopolamine 1.5 mg* PATCH ONE (23:28)
[2018-03-30] MEDS ORDERED: Bupivacaine 0.5%* 50 ML VIAL ONE (23:37)
--- NOTE | 2018-03-30 23:38 | ED ---
Abdominal Pain/Female - HPI Summary HPI Summary: Patient complains of pelvic and umbilical gianna pain that radiates to back starting today, also complains of some brown vaginal discharge yesterday and today. Abdominal pain is constant, worse with movement, 10/10, sharp. Denies prior history of same pain. Denies fever, cough, sore throat, CP, SOB, N/V/D, change in urine, change in BM, vaginal pain. LMP 1 week ago. Sexually active but does not use contraception. Abdominal surgical history includes D&C recently. - History of Current Complaint Chief Complaint: EDAbdPain Stated Complaint: ABD PAIN Time Seen by Provider: 03/30/18 18:21 Hx Obtained From: Patient Hx Last Menstrual Period: 02/17/18 Onset/Duration: Sudden Onset Timing: Constant Severity Initially: Severe Severity Currently: Severe Pain Intensity: 10 Pain Scale Used: 0-10 Numeric Location: Suprapubic, Umbilical Radiates: Yes Radiates to: Back Character: Sharp Aggravating Factor(s): Movement Alleviating Factor(s): Position Associated Signs and Symptoms: Positive: Back Pain, Vaginal Discharge Allergies/Adverse Reactions: Allergies Allergy/AdvReac Type Severity Reaction Status Date / Time No Known Allergies Allergy Verified 03/30/18 17:06 Home Medications: Home Medications Cyclobenzaprine (NF) [Cyclobenzaprine 5 MG (NF)] 5 - 10 mg PO BEDTIME PRN [History Confirmed 03/30/18] clonazePAM TAB(*) [KlonoPIN TAB(*)] 0.5 mg PO BID PRN MDD 1 mg 03/30/18 [ History Confirmed 03/30/18] PMH/Surg Hx/FS Hx/Imm Hx Endocrine/Hematology History: Denies: Hx Anticoagulant Therapy Cardiovascular History: Denies: Hx Cardiac Arrest, Hx Hypertension Respiratory History: Reports: Other Respiratory Problems/Disorders - upper respiratory infection- recently resolved History: Reports: Hx Kidney Stones - right kidney Musculoskeletal History: Reports: Hx Arthritis, Hx Tendonitis - left wrist Sensory History: Denies: Hx Contacts or Glasses, Hx Legally Blind, Hx Deafness, Hx Hearing Aid Opthamlomology History: Denies: Hx Contacts or Glasses, Hx Legally Blind Neurological History: Denies: Hx Developmental Delay Psychiatric History: Reports: Hx Anxiety - Cancer History Hx Chemotherapy: No Infectious Disease History: No Infectious Disease History: Denies: Traveled Outside the [place] in Last 30 Days - Family History Known Family History: Positive: Hypertension, Diabetes, Other - kidney stones - Social History Alcohol Use: Occasionally Substance Use Type: Reports: None Smoking Status (MU): Never Smoked Tobacco Have You Smoked in the Last Year: No Review of Systems Constitutional: Negative Eyes: Negative ENT: Negative Cardiovascular: Negative Respiratory: Negative Positive: Abdominal Pain Genitourinary: Negative Musculoskeletal: Negative Skin: Negative Neurological: Negative Psychological: Normal All Other Systems Reviewed And Are Negative: Yes Physical Exam - Summary Physical Exam Summary: Abdomen tender to palpation right lower quadrant, pelvic and umbilical areas. No guarding or peritoneal signs. Physical exam otherwise unremarkable. Triage Information Reviewed: Yes Vital Signs On Initial Exam: Initial Vitals Temp Pulse Resp BP Pulse Ox 99.4 F 109 16 117/97 98 03/30/18 17:02 03/30/18 17:02 03/30/18 17:02 03/30/18 17:02 03/30/18 17:02 Vital Signs Reviewed: Yes Appearance: Positive: Well-Appearing Skin: Positive: Warm Head/Face: Positive: Normal Head/Face Inspection Eyes: Positive: Normal Neck: Positive: Supple Respiratory/Lung Sounds: Positive: Clear to Auscultation Cardiovascular: Positive: Normal Abdomen Description: Positive: Other: Musculoskeletal: Positive: Normal Neurological: Positive: Normal Psychiatric: Positive: Normal AVPU Assessment: Alert - Monae Coma Scale Best Eye Response: 4 - Spontaneous Best Motor Response: 6 - Obeys Commands Best Verbal Response: 5 - Oriented Coma Scale Total: 15 Diagnostics - Vital Signs Vital Signs Temp Pulse Resp BP Pulse Ox 03/30/18 23:13 99.0 F 90 18 107/70 100 03/30/18 22:47 104/64 03/30/18 22:32 100 107/70 99 03/30/18 22:17 88 98/53 99 03/30/18 22:02 80 101/56 100 03/30/18 22:00 82 100 03/30/18 21:47 82 108/63 99 03/30/18 21:33 87 102/54 98 03/30/18 21:32 77 89/55 98 03/30/18 21:26 18 03/30/18 21:17 93 117/58 100 03/30/18 21:04 115/61 03/30/18 21:00 95 100 03/30/18 20:51 86 105/66 100 03/30/18 20:47 89 96/68 100 03/30/18 20:32 94 117/62 100 03/30/18 20:12 83 110/67 100 03/30/18 20:11 92 100 03/30/18 20:10 85 116/65 100 03/30/18 19:42 87 109/65 100 03/30/18 19:13 16 03/30/18 19:00 80 100 03/30/18 18:56 78 101/56 99 03/30/18 18:27 90 99 03/30/18 18:26 89 115/72 100 03/30/18 17:02 99.4 F 109 16 117/97 98 - Laboratory Lab Results: Lab Results 03/30/18 03/30/18 03/30/18 Range/Units 17:57 17:57 18:41 WBC 11.2 H (3.5-10.8) 10^3/ul RBC 3.59 L (4.00-5.40) 10^6/ul Hgb 11.7 L (12.0-16.0) g/dl Hct 35 (35-47) % MCV 97 (80-97) fL MCH 32 H (27-31) pg MCHC 34 (31-36) g/dl RDW 13 (10.5-15) % Plt Count 213 (150-450) 10^3/ul MPV 8.1 (7.4-10.4) fL Neut % (Auto) 68.4 % Lymph % (Auto) 19.3 % Noble % (Auto) 10.8 % Eos % (Auto) 1.0 % Baso % (Auto) 0.5 % Absolute Neuts (auto) 7.7 (1.5-7.7) 10^3/ul Absolute Lymphs (auto) 2.2 (1.0-4.8) 10^3/ul Absolute Monos (auto) 1.2 H (0-0.8) 10^3/ul Absolute Eos (auto) 0.1 (0-0.6) 10^3/ul Absolute Basos (auto) 0.1 (0-0.2) 10^3/ul Absolute Nucleated RBC 0 10^3/ul Nucleated RBC % 0 Sodium 136 (135-145) mmol/L Potassium 3.7 (3.5-5.0) mmol/L Chloride 105 (101-111) mmol/L Carbon Dioxide 26 (22-32) mmol/L Anion Gap 5 (2-11) mmol/L BUN 15 (6-24) mg/dL Creatinine 0.59 (0.51-0.95) mg/dL Est GFR ( Amer) 142.0 (>60) Est GFR (Non-Af Amer) 117.4 (>60) BUN/Creatinine Ratio 25.4 H (8-20) Glucose 98 (70-100) mg/dL Calcium 9.0 (8.6-10.3) mg/dL Total Bilirubin 0.70 (0.2-1.0) mg/dL AST 13 (13-39) U/L ALT 18 (7-52) U/L Alkaline Phosphatase 47 (34-104) U/L C-Reactive Protein 1.21 (<8.01) mg/L Total Protein 6.3 L (6.4-8.9) g/dL Albumin 4.2 (3.2-5.2) g/dL Globulin 2.1 (2-4) g/dL Albumin/Globulin Ratio 2.0 (1-3) Lipase 78 (11.0-82.0) U/L Beta HCG, Quant 1174.88 mIU/mL Urine Color Yellow Urine Appearance Clear Urine pH 5.0 (5-9) Ur Specific [place] 1.025 (1.010-1.030) Urine Protein Negative (Negative) Urine Ketones Negative (Negative) Urine Blood 1+ A (Negative) Urine Nitrate Negative (Negative) Urine Bilirubin Negative (Negative) Urine Urobilinogen Positive A (Negative) Ur Leukocyte Esterase Negative (Negative) Urine WBC (Auto) Trace(0-5/hpf) (Absent) Urine RBC (Auto) 2+(6-10/hpf) A (Absent) Ur Squamous Epith Cells Present A (Absent) Urine Bacteria Absent (Absent) Urine Glucose Negative (Negative) Urine Ascorbic Acid Not Reportable Result Diagrams: 03/30/18 17:57 03/30/18 17:57 Lab Statement: Any lab studies that have been ordered have been reviewed, and results considered in the medical decision making process. Abdominal Pain Fem Course/Dx - Course Course Of Treatment: Patient complains of pelvic and umbilical gianna pain that radiates to back starting today, also complains of some brown vaginal discharge yesterday and today. Abdominal pain is constant, worse with movement, 10/10, sharp. Denies prior history of same pain. Denies fever, cough, sore throat, CP , SOB, N/V/D, change in urine, change in BM, vaginal pain. LMP 1 week ago. Sexually active but does not use contraception. Abdominal surgical history includes D&C recently. Physical exam:Abdomen tender to palpation right lower quadrant, pelvic and umbilical areas. No guarding or peritoneal signs. Physical exam otherwise unremarkable. Vital signs within normal limits. WBC 11.2. Hgb 11.7. HCG 1174. Patient did not know she was . Patient O+ . Patient states she was told by urologist she should not get anymore CTs as she has fatty kidney. Ultrasound of appendix was inconclusive. Transvaginal ultrasound concerning for possible ectopic . Dr. Zapaat PROJECT GEOPHYSICIST consulted and patient was taken to OR. - Diagnoses Provider Diagnoses: , Ectopic Discharge - Sign-Out/Discharge Documenting (check all that apply): Patient Departure - Discharge Plan Condition: Stable Disposition: ADMITTED TO [facility] - Billing Disposition and Condition Condition: STABLE Disposition: Admitted to [facility]
[2018-03-31] MEDS ORDERED: Glycopyrrolate IV* 0.2 MG/ML 1 ML VIAL ONE (01:22)
[2018-03-31] MEDS ORDERED: Neostigmine Methylsulfate* 1 MG/ML 10 ML VIAL (1 mg/ml) ONE (01:22)
[2018-03-31] MEDS ORDERED: fentaNYL* 50 MCG/ML 2 ML VIAL (100 MCG VIAL) IV PRN (01:34)
[2018-03-31] MEDS ORDERED: Naloxone* 0.4 MG/ML 1 ML VIAL IV PRN (01:34)
[2018-03-31] MEDS ORDERED: DiMENhydriNATE IV* 50 MG/ML VIAL IV PUSH PRN (01:34)
[2018-03-31] MEDS ORDERED: fentaNYL* 50 MCG/ML 2 ML VIAL (100 MCG VIAL) ONE (01:37)
[2018-03-31] MEDS ORDERED: Ibuprofen TAB* 600 MG PO PRN (02:45)
[2018-03-31] MEDS: oxyCODONE/Acetamin 5/325 MG* TAB PO PRN ×2 (02:56→07:31)
[2018-03-31 07:29] VITALS: BP 94/44
--- NOTE | 2018-04-01 22:33 | OP ---
CC: Dr. Sherrie Buenrostro * DATE OF OPERATION: 03/31/18 - ROOM #332 DATE OF : 83 SURGEON: Benja Zapata MD. PIPEFITTER: Dr. Sherrie Buenrostro. ANESTHESIA: General anesthetic with endotracheal intubation. PRE-OP DIAGNOSIS: Abdominal pain, acute abdomen, positive test with no intrauterine , and intraperitoneal fluid along with bilateral adnexal masses. POST-OP DIAGNOSIS: Abdominal pain, acute abdomen, positive test with no intrauterine , and intraperitoneal fluid along with bilateral adnexal masses along with a left tubal and a ruptured right ovarian cyst and hemoperitoneum. OPERATIVE PROCEDURE: Laparoscopic left salpingectomy with evacuating of hemoperitoneum. ESTIMATED BLOOD LOSS: Minimal. SPECIMEN SENT TO PATHOLOGY: Left fallopian tube. FLUIDS: She received 1900 cc of IV crystalloid fluid. URINE OUTPUT: Clear. FINDINGS: The patient was noted to have around 1 to 1.5 L of intraperitoneal hemorrhage with clot. She was noted to have a normal right tube with a bleeding ruptured ovarian cyst. Otherwise, the ovary was normal. She also had a persistently bleeding and inflamed left tube consistent with ectopic and a normal left ovary. The right ovary became hemostatic spontaneously. The uterus was within normal limits as well as the bowel and bladder. DESCRIPTION OF PROCEDURE: The patient was taken to the operating room where she was identified. She was placed on the operating table, where a general anesthetic with endotracheal intubation was obtained without difficulty. She was placed in the dorsal lithotomy position. She was prepped and draped in a normal sterile fashion. Attention was then brought onto the perineum where the bladder was catheterized with a Isidro catheter and left in place. A sponge- stick was then introduced into the patient's vagina. Attention was then brought onto the patient's abdomen, where a 1-cm infraumbilical skin incision was made with a knife and carried through to the underlying layer of fascia. The fascia was grasped with Emilee clamps, incised medially, extended directly with a Hannah clamp and entry into the peritoneum was confirmed with the Hannah clamp and visualization. The Emilee clamps were replaced with 0 Polysorb sutures on the fascia, and through this incision a 10-mm blunt trocar was introduced. The balloon in the trocar was insufflated with air and the trocar was then attached to CO2 gas, and the patient's abdomen was insufflated. A 10- mm scope was introduced through the trocar, and the survey of the patient's pelvis and abdomen revealed findings as noted above. At this point, we introduced 2 trocars; one in the right upper quadrant of the patient's abdomen and the other one in the left upper quadrant of the patient's abdomen under direct visualization. We proceeded to evacuate the hemoperitoneum using suction. Once the blood was completely removed from the patient's pelvis, we then proceeded to identify the anatomy, which revealed findings as noted above. The left fallopian tube was persistently bleeding and findings of an inflamed bleeding fallopian tube was consistent with ectopic , so we proceeded with a left salpingectomy, which was done in the usual fashion using LigaSure device with cautery and cutting . The left fallopian tube was then removed and sent to pathology. At this point, we noted that the patient had a right ruptured ovarian cyst, which initially upon the procedure was noted to be bleeding; however, it became completely hemostatic as the procedure moved well. We therefore irrigated the patient's abdomen and pelvis, suctioned irrigation fluid and then noted that all the pedicles were hemostatic along with the right ovarian cyst. We then proceeded to remove the right and left trocar under direct visualization. The blunt trocar was removed from the patient's abdomen. The CO2 gas was also removed. The fascia in the umbilicus was closed using 0 Vicryl suture in a running fashion and all the skin incisions, umbilical, and right and left upper quadrant were closed using 4-0 Monocryl in a subcuticular stitch. Isidro catheter was subsequently removed as well as sponge-stick in the vagina. Sponge, lap, and needle counts were correct x2. She tolerated the procedure well. She was then transferred to recovery room area in stable condition. [id number]/[facility] #: [id number] [facility] CENTERKeira
== END 2018-03-31 11:05 | disposition home or self-care (01) ==
LOC: ED 16:51 → OR 03-31 → SSU 03-31 01:28
PROVIDERS: ADMIT Obstetrics & Gynecology; ATTEND Obstetrics & Gynecology
DX: O00.90 Unspecified ectopic pregnancy without intrauterine pregnancy (principal); M54.9 Dorsalgia, unspecified; K66.1 Hemoperitoneum; N20.0 Calculus of kidney
CPT/HCPCS: 36415; 76705; 76830; 80053; 81003; 81015; 83690; 84702; 85025; 86140; 87086; 88305; 99284; A9270-GY; G0378; J0694; J1100; J1885; J2250; J2270; J2405; J2704; J2710; J3010

== ENCOUNTER → 2018-04-02 14:43 | Emergency (ER) | payer OTHER ==
[~2018-04-02 14:43] MED LIST changes: -Buffered Lidocaine 0.9% SYRIN* 5 ML/SYR SYRINGE INTRADERM ONE; +Ketorolac INJ* 30 MG/ML 1 ML VIAL IV PUSH ONE; +oxyCODONE/Acetamin 5/325 MG* TAB PO ONE
[2018-04-02 17:50] LABS: Urine Appearance Cloudy; Urine Bacteria Absent (Absent); Urine Bilirubin Negative (Negative); Urine Blood 1+ (Negative); Urine Color Yellow; Urine Glucose Negative (Negative); Urine Ketones 1+ (Negative); Urine Nitrite Negative (Negative); Urine Protein Negative (Negative); Urine Red Blood Cell Trace(0-2/hpf) (Absent); Urine Specific Gravity 1.018 (1.010-1.030); Urine Urobilinogen Positive (Negative); Urine White Blood Cell Trace(0-5/hpf) (Absent)
--- NOTE | 2018-04-02 18:44 | ED ---
Abdominal Pain/Female - HPI Summary HPI Summary: A 32 y/o female presents to the ED c/o abdominal pain reaching 8/10 in severity. In the ED room, the patient has a pulse of 82 BPM, O2 saturation of 100%, and blood pressure of 117/59. As per triage, "03/31/17 had surgery for ectopic . New/worsening symptoms of bloating, constant sharp stabbing ABD pain and spotting. New pain to LUQ painful to touch, warm and swelling noted. Low grade fever 100.1 at home. Pt called PCP and was told to go to ED for further evaluation". According to the patient, she recent had a surgery for ectopic pregnany, however, she started experiencing diffuse abdominal pain, more so on the LLQ. Patient noted that on Thursday nigt is when the paid started. Additionally, she had been experiencing SOB, chest pain, lower back pain and right shoulder pain. Patient refused CT scan with IV contrast due to her Urologist recommending the patient not to undergo any more since she has already had scans in the past. PMHx of kidney stone in April 2016, cyst in 2008. Urologist is Dr. Borjas. Dr. Zapata is her surgeon. A1. - History of Current Complaint Chief Complaint: EDAbdPain Stated Complaint: ABD PAIN/SWELLING/BLEEDING Hx Obtained From: Patient Hx Last Menstrual Period: 02/17/18 Onset/Duration: Sudden Onset, Lasting Days, Still Present Timing: Days Severity Initially: Severe Severity Currently: Severe Pain Intensity: 9 Pain Scale Used: 0-10 Numeric Location: Diffuse, Discrete At: LLQ - MORESO Radiates: No Character: Sharp Aggravating Factor(s): Nothing Alleviating Factor(s): Nothing Associated Signs and Symptoms: Positive: Negative Allergies/Adverse Reactions: Allergies Allergy/AdvReac Type Severity Reaction Status Date / Time No Known Allergies Allergy Verified 04/02/18 14:49 PMH/Surg Hx/FS Hx/Imm Hx Endocrine/Hematology History: Denies: Hx Anticoagulant Therapy Cardiovascular History: Denies: Hx Cardiac Arrest, Hx Hypertension Respiratory History: Reports: Hx Seasonal Allergies, Other Respiratory Problems/ Disorders - upper respiratory infection- recently resolved History: Reports: Hx Kidney Stones - right kidney Musculoskeletal History: Reports: Hx Arthritis, Hx Tendonitis - left wrist Sensory History: Denies: Hx Contacts or Glasses, Hx Legally Blind, Hx Deafness, Hx Hearing Aid Opthamlomology History: Denies: Hx Contacts or Glasses, Hx Legally Blind Neurological History: Reports: Hx Migraine Denies: Hx Developmental Delay Psychiatric History: Reports: Hx Anxiety - Cancer History Hx Chemotherapy: No - Surgical History Surgery Procedure, Year, and Place: [facility], September [facility] - [facility] [place] Infectious Disease History: No Infectious Disease History: Denies: Traveled Outside the [place] in Last 30 Days - Family History Known Family History: Positive: Hypertension, Diabetes, Other - kidney stones - Social History Alcohol Use: Occasionally Substance Use Type: Reports: None Smoking Status (MU): Never Smoked Tobacco Have You Smoked in the Last Year: No Review of Systems Negative: Fever, Chills Positive: Other - NEGATIVE: DOUBLE VISION. Negative: Blurred Vision Negative: Sore Throat, Ear Ache Positive: Chest Pain Positive: Shortness Of Breath Positive: Abdominal Pain, Other - NEGATIVE: BLOOD IN STOOL, CONSTIPATION Negative: dysuria, hematuria Positive: Other - NEGATIVE: NECK PAIN; POSITIVE: LOWER BACK PAIN, RIGHT SHOULDER PAIN. Negative: Edema Negative: Rash Negative: Anxious, Depressed All Other Systems Reviewed And Are Negative: No Physical Exam - Summary Physical Exam Summary: Appearance: Alert, conversive, nontoxic appearing Skin: Warm, dry, no mottling, no rashes, no contusions HEENT: EOMI, PERRL, moist mucous membranes Neck: No masses on the neck, supple Respiratory: Clear to auscultation, breath sounds present, no rales, no rhonchi , no wheezes Cardiovascular: RRR, pulses are symmetrical in both lower and upper extremities Abdomen: Soft, suprapubic and LLQ tenderness Bowel Sounds: Present Musculoskeletal: No CVA tenderness, no obvious deformity, moving all extremities in a grossly normal manner Neurological: A&Ox3, CN II-XII Intact, moving all extremities symmetrically Psychiatric: Normal affect and mood Triage Information Reviewed: Yes Vital Signs On Initial Exam: Initial Vitals Temp Pulse Resp BP Pulse Ox 98.4 F 81 15 124/69 99 04/02/18 14:44 04/02/18 14:44 04/02/18 14:44 04/02/18 14:44 04/02/18 14:44 Vital Signs Reviewed: Yes Diagnostics - Vital Signs Vital Signs Temp Pulse Resp BP Pulse Ox 04/02/18 18:23 99.2 F 85 16 119/61 99 04/02/18 17:17 100.3 F 89 16 118/53 100 04/02/18 14:44 98.4 F 81 15 124/69 99 - Laboratory Lab Results: Lab Results 04/02/18 Range/Units 17:14 Urine Color Yellow Urine Appearance Cloudy Urine pH 7.0 (5-9) Ur Specific [place] 1.018 (1.010-1.030) Urine Protein Negative (Negative) Urine Ketones 1+ A (Negative) Urine Blood 1+ A (Negative) Urine Nitrate Negative (Negative) Urine Bilirubin Negative (Negative) Urine Urobilinogen Positive A (Negative) Ur Leukocyte Esterase Negative (Negative) Urine WBC (Auto) Trace(0-5/hpf) (Absent) Urine RBC (Auto) Trace(0-2/hpf) (Absent) Ur Squamous Epith Cells Present A (Absent) Urine Bacteria Absent (Absent) Urine Glucose Negative (Negative) Result Diagrams: 04/02/18 18:54 04/02/18 18:54 Lab Statement: Any lab studies that have been ordered have been reviewed, and results considered in the medical decision making process. - CT CT A/P CT Interpretation Completed By: Radiologist Summary of CT Findings: 1. There is mild intraperitoneal free air in the abdomen and upper pelvis consistent with recent surgery. 2. There may be a small quantity of residual hemorrhage in the pelvis but limited evaluation without IV contrast, difficult to distinguish pelvic organs and bowel loops from fluid collections. ED PHYSICIAN REVIEWED THIS RADIOLOGY REPORT. - Ultrasound No standard instances Ultrasound Interpretation Completed By: Radiologist Summary of Ultrasound Findings: PELVIS US: There is a small volume of serous free fluid in the pelvis, cannot exclude ovarian cyst rupture. No obvious hemorrhage in the pelvis. ED PHYSICIAN REVIEWED THIS RADIOLOGY REPORT. Abdominal Pain Fem Course/Dx - Course Course Of Treatment: A 32 y/o female presents to the ED c/o abdominal pain reaching 8/10 in severity. Physical examination findings significant for suprapubic and LLQ tenderness. A CT A/P revealed 1. There is mild intraperitoneal free air in the abdomen and upper pelvis consistent with recent surgery. 2. There may be a small quantity of residual hemorrhage in the pelvis but limited evaluation without IV contrast, difficult to distinguish pelvic organs and bowel loops from fluid collections. A Pelvic US revealed there is a small volume of serous free fluid in the pelvis, cannot exclude ovarian cyst rupture. No obvious hemorrhage in the pelvis. Hematology, Chemistry, and urinalysis screens were done. No significant laboratory abnormalities were found. In the ED course, the patient received Toradol and Percocet. Patient will be discharged with acute abdominal pain. Patient is to follow up with primary care provider and CLINICAL SCIENCES PROFESSOR in 2-3 days. Patient is to return to the ED for any new or worsening symptoms. Patient is agreeable with this plan. 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 return if worse or any new symptoms . Take the zofran for nausea and percocet for pain. RETURN TO THE ED FOR ANY NEW OR WORSENING SYMPTOMS. - Billing Disposition and Condition Condition: STABLE Disposition: Home - Attestation Statements Document Initiated by Jovanna: Yes Documenting Scribe: Rick Tsang Provider For Whom Jovanna is Documenting (Include Credential): Patti Hernandez MD Scribe Attestation: Rick Jensen scribed for Patti Hernandez MD on 04/05/18 at 1917. Scribe Documentation Reviewed: Yes Provider Attestation: The documentation as recorded by the Rick paul accurately reflects the service I personally performed and the decisions made by me, Patti Hernandez MD Status of Scribe Document: Viewed
[2018-04-02 19:03] LABS: ABS Basophils 0.1 10^3/ul (0-0.2); ABS Eosinophils 0.3 10^3/ul (0-0.6); ABS Lymphocytes 2.2 10^3/ul (1.0-4.8); ABS Monocytes 0.7 10^3/ul (0-0.8); ABS Neutrophils 4.2 10^3/ul (1.5-7.7); ABS Nucleated RBC 0 10^3/ul; Eosinophil % 4.1 %; Hematocrit 32 % (35-47); Hemoglobin 10.4 g/dl (12.0-16.0); Lymphocyte % 29.6 %; Mean Corpuscular HGB Conc 33 g/dl (31-36); Mean Corpuscular Hemoglobin 32 pg (27-31); Mean Corpuscular Volume 97 fL (80-97); Mean Platelet Volume 8.5 fL (7.4-10.4); Nucleated Red Blood Cells % 0; Platelet Count 181 10^3/ul (150-450); Red Blood Count 3.23 10^6/ul (4.00-5.40); Red Cell Distribution Width 13 % (10.5-15); White Blood Count 7.5 10^3/ul (3.5-10.8)
[2018-04-02 19:20] LABS: Albumin 4.1 g/dL (3.2-5.2); Albumin/Globulin Ratio 1.5 (1-3); BUN/Creatinine Ratio 22.6 (8-20); Calcium 8.8 mg/dL (8.6-10.3); EGFR Non-African American 132.9 (>60); Globulin 2.7 g/dL (2-4); Potassium 3.6 mmol/L (3.5-5.0); Total Bilirubin 0.5 mg/dL (0.2-1.0); Total Protein 6.8 g/dL (6.4-8.9)
[2018-04-02 19:26] LABS: HCG Pregnancy 248.6 mIU/mL
--- NOTE | 2018-04-02 21:31 | PN ---
Progress Note - Progress Note Date of Service: 04/02/18 SOAP: Subjective: [32 yo 3 days s/p laparoscopy and salpingectomy for ectopic . pt has been having trouble with pain control taking only tylenol and ibuprofen . pt states pain has gotten worse tonight and is on the left side along the iliac crest. + flatus / no fever nausea or vomitting.ambulating ] Objective: [vitals stable afebrile] abdomen soft + bowel sounds/ incisions all clean dry intact. no rebound / no guarding CT is negative except for some normal post op air and a little free fluid/ ultrasound shows similar finding with good blood flow to the left ovary wbc normal / hgb stable Assessment: []inadequate pain control Plan: []add percocet and zofran to regimen call if symptoms worsen
[2018-04-02 22:13] VITALS: BP 106/67
== END | disposition home or self-care (01) ==
LOC: ED 14:43
DX: R10.12 Left upper quadrant pain (principal); Z87.442 Personal history of urinary calculi; F41.9 Anxiety disorder, unspecified
CPT/HCPCS: 36415; 74176; 76856; 80053; 81003; 81015; 84702; 85025; 87086; 96374; 99283; A9270-GY; J1885

== ENCOUNTER 2019-04-19 09:02 | Emergency (ER) | payer OTHER ==
--- OUTSIDE RECORDS SUMMARY | 2019-04-19 09:12 | XMS REPORT | Continuity of Care Document ---
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 No Information Available Social History Type Date Description Comments Sex Unknown ETOH Use Currently consumes alcohol Tobacco Use Start: Unknown Light tobacco smoker (10 or fewer cigarettes/day) Smoking Status Reviewed: 04/14/19 Light tobacco smoker (10 or fewer cigarettes/day) Allergies, Adverse Reactions, Alerts Description No Known Drug Allergies Medications Active Medications SIG Qnty Indications Ordering Date Provider Cyanocobalamin 1000 mcg 6ml E53.8 Gemma 02/08/2019 intramuscular weekly Senner DO 1000mcg/ML Solution for one month, and then monthly for six months Fluconazole 1 tab by mouth once 1tabs B37.89 Gemma 02/08/2019 150mg Senner, DO Tablets Vitamin B12 1 by mouth every day 30tabs Gemma 02/02/2019 1000mcg Senner, DO Tablets ER Clonazepam 1 by mouth daily as Unknown 0.5mg needed, use Tablets sparingly Tylenol Extra 2 tabs by mouth Unknown Strength every 6 hours as 500mg Tablets needed Advil as needed Unknown 200mg Tablets Melatonin 1 tabs by mouth Unknown 5mg Tablets daily at bedtime Dispers Albuterol Sulfate HFA inhale 2 puffs by 8.500gm Gemma mouth every 3 to 4 Senner, DO 108(90Base) mcg/Act hours as needed for Aerosol cough, wheeze or for shortness of breath Ondansetron Dissolve 1 To 2 Unknown 4mg Tablets Tablets On TOP Of Dispers Tongue Every 8 Hours as Needed For Nausea Hydrocodone-Acetamino Take 1 Tablet By Unknown phen Mouth Two Times 5-325mg Tablets Daily; Maximum Daily Dose Of 2 Per Day Methocarbamol take 1 or 2 at night Unknown 500mg as needed for muscle Tablets spasms Amoxicillin 1 tablet by mouth Unknown 500mg three times a day Capsules History Medications Amoxicillin/Clavulanate 10 ml twice a 200ml Wisam Plascencia MD 10/18/2018 - Potassium day for 7 days 11/26/2018 400-57mg/5ML Suspension Rec Medications Administered in Office Medication SIG Qnty Indications Ordering Provider Date B12 Provided By Patient Nurse Visit [place] 04/08/2019 Injection B12 Provided By Patient Nurse Visit [place] 03/08/2019 Injection B12 Provided By Patient Nurse Visit [place] 03/01/2019 Injection B12 Provided By Patient Nurse Visit [place] 02/22/2019 Injection B12 Provided By Patient Nurse Visit [place] 02/15/2019 Injection Depomedrol 40MG Gage Gomez MD 12/14/2018 Injection Depomedrol 40MG Gage Gomez MD 12/14/2018 Injection Immunizations Description No Information Available Vital Signs Date Vital Result Comment 04/14/2019 9:02am Height 65.5 inches 5'5.50" Weight 121.00 lb Heart Rate 71 /min BP Systolic Sitting 95 mmHg BP Diastolic Sitting 56 mmHg Body Temperature 98.1 F O2 % BldC Oximetry 99 % BMI (Body Mass Index) 19.8 kg/m2 04/13/2019 3:03pm Height 65.5 inches 5'5.50" Weight 126.12 lb Heart Rate 88 /min BP Systolic Sitting 98 mmHg BP Diastolic Sitting 62 mmHg Body Temperature 98.3 F Pain Level 8 O2 % BldC Oximetry 98 % BMI (Body Mass Index) 20.7 kg/m2 Results Test Acquired Date Facility Test Result H/L Range Note Laboratory test 04/13/2019 [facility] Complement C3 <pending> finding [address] [place] [address] [phone] Complement C4 <pending> Anti Double Stranded Dna AB <pending> Thyroid 04/13/2019 [facility] Thyroglobulin 0.1 IU/mL <4.[address] [place] [address] [phone] Thyroid Peroxidase Antibodies 0.54 IU/mL Normal <9 Laboratory test 04/13/2019 [facility] Free Cortisol <pending> finding [address] Serum [place] [address] [phone] Hla B27 <pending> Laboratory test 04/13/2019 [facility] Angiotensin <pending> finding DRIVE Converting Enzyme [place] [address] [phone] Aldolase <pending> Laboratory test 04/13/2019 [facility] Vitamin D 31.0 ng/mL Normal 20-[address] Total 25(Oh) [place] [address] [phone] C Reactive Protein < 1.00 mg/L Normal <8.01 Influenza A & B 02/08/2019 [facility] Flu AB Disclaimer (SEE NOTE) 2, [address] [place] [address] [phone] Influenza A Molecular NEGATIVE Negative 4 Influenza B Molecular NEGATIVE Negative Influenza A & B 02/08/2019 [facility] Influenza A NEGATIVE Negative 5, [address] [place] [address] [phone] Influenza B Molecular NEGATIVE Negative Flu AB Disclaimer (SEE NOTE) 7 Nuclear AB 02/08/2019 [facility] Nuclear Ab Positive 1:320 Abnormal 8 (Silvia) By Ifa (Silvia) by Ifa, [place] [address] IgG [phone] Silvia Titer: 1:320 Silvia Pattern: Homogeneous 9 Laboratory test 02/08/2019 [facility] Creatine 53 U/L Normal 10-[address] Kinase(CK) [place] [address] [phone] Lyme Screen W/ Reflex To WB Negative Negative Aldolase 4.2 U/L <7.7 10 CBC Auto 02/01/2019 [facility] White Blood 9.9 10^3/uL Normal 3.5-10.[address] [place] [address] [phone] Red Blood Count 4.11 10^6/uL Normal 3.70-4.87 Hemoglobin 13.5 g/dL Normal 12.0-16.0 Hematocrit 40 % Normal 35-47 Mean Corpuscular Volume 97 fL Normal 80-97 Mean Corpuscular Hemoglobin 33 pg High 27-31 Mean Corpuscular HGB Conc 34 g/dL Normal 31-36 Red Cell Distribution Width 13 % Normal 10-15 Platelet Count 209 10^3/uL Normal 150-450 Mean Platelet Volume 8.1 fL Normal 7.4-10.4 Abs Neutrophils 6.9 10^3/uL Normal 1.5-7.7 Abs Lymphocytes 1.8 10^3/uL Normal 1.0-4.8 Abs Monocytes 1.0 10^3/uL High 0-0.8 Abs Eosinophils 0.2 10^3/uL Normal 0-0.6 Abs Basophils 0.0 10^3/uL Normal 0-0.2 Abs Nucleated RBC 0.0 10^3/uL Granulocyte % 69.1 % Lymphocyte % 17.8 % Monocyte % 10.5 % Eosinophil % 2.3 % Basophil % 0.3 % Nucleated Red Blood Cells % 0.0 Laboratory test 02/01/2019 [facility] Erythrocyte Sed 11 mm/Hr Normal 0-[address] [place] [address] [phone] HCG < 0.60 mIU/mL 11 Comp Metabolic 02/01/2019 [facility] Sodium 137 mmol/L Normal 135-[address] [place] [address] [phone] Potassium 3.9 mmol/L Normal 3.5-5.0 Chloride 106 mmol/L Normal 101-111 Co2 Carbon Dioxide 27 mmol/L Normal 22-32 Anion Gap 4 mmol/L Normal 2-11 Glucose 95 mg/dL Normal 70-100 Blood Urea Nitrogen 12 mg/dL Normal 6-24 Creatinine 0.61 mg/dL Normal 0.51-0.95 BUN/Creatinine Ratio 19.7 Normal 8-20 Calcium 9.1 mg/dL Normal 8.6-10.3 Total Protein 6.8 g/dL Normal 6.4-8.9 Albumin 4.2 g/dL Normal 3.2-5.2 Globulin 2.6 g/dL Normal 2-4 Albumin/Globulin Ratio 1.6 Normal 1-3 Total Bilirubin 0.80 mg/dL Normal 0.2-1.0 Alkaline Phosphatase 62 U/L Normal 34-104 Alt 19 U/L Normal 7-52 Ast 16 U/L Normal 13-39 Egfr Non- 112.3 >60 Egfr 135.9 >60 12 Laboratory test 02/01/2019 [facility] Rheumatoid < 10 IU/mL Normal <[address] [place] [address] [phone] C Reactive Protein 9.51 mg/L High <8.01 Vitamin D Total 25(Oh) 34.2 ng/mL Normal 20-50 13 Vitamin B12 152 pg/mL Low 180-914 14 Ebv Rimma Sweeney 02/01/2019 [facility] Ebv Capsid Positive Negative Comprehensive [address] [place] [address] [phone] Ebv Capsid Ag IgM Ab Negative Negative Rimma-Sweeney Nuclear Antigen Positive Negative Rimma-Sweeney Virus Interp See Comment 15 Laboratory 11/26/2018 [facility] TSH (Thyroid 1.45 Normal 0.34 -5.60 test finding [address] Stim Horm) mcIU/[place] [address] [phone] GC/Chlamydia 11/26/2018 [facility] Chlamydia Negative Negative Amplified Rna [address] [place] [address] Ashleigh [phone] Neisseria gonorrhoeae (GC) Ashleigh Negative Negative Urinalysis Profile 11/26/2018 [facility] Urine Color Yellow [address] [place] [address] [phone] Urine Appearance Clear Urine Specific [place] 1.016 Normal 1.010-1.030 Urine pH 5.0 Normal 5-9 Urine Urobilinogen Negative Negative Urine Ketones Negative Negative Urine Protein Negative Negative Urine Leukocytes Negative Negative Urine Blood 1+ Abnormal Negative Urine Nitrite Negative Negative Urine Bilirubin Negative Negative Urine Glucose Negative Negative Urine White Blood Cell Trace(0-5/hpf) Absent Urine Red Blood Cell Trace(0-2/hpf) Absent Urine Bacteria Absent Absent Urine Squamous Epithelial Cell Present Abnormal Absent Urine Culture And 11/26/2018 [facility] Urine Culture SEE RESULT [address] [place] [address] [phone] Laboratory test 11/26/2018 [facility] Cytology SEE RESULT [address] [place] [address] [phone] 1 Total 25-Hydroxyvitamin D2 and D3 (25-OH-VitD) <10 ng/mL (severe deficiency) 10-19 ng/mL (mild to moderate deficiency) 20-50 ng/mL (optimum levels) 51-80 ng/mL (increased risk of hypercalciuria) >80 ng/mL (toxicity possible) 2 [id number] 3 Suboptimal collection technique may reduce sensitivity of test. Refer to the [employer] Test Catalog for collection information: [email or web address] As with all diagnostic procedures, the laboratory results obtained should be used in conjunction with other clinical information available to the physician, including confirmation by another method, as applicable. 4 Management Development Specialist: [id number] 5 NARES 6 Management Development Specialist: [id number] 7 Suboptimal collection technique may reduce sensitivity of test. Refer to the [employer] Test Catalog for collection information: [email or web address] As with all diagnostic procedures, the laboratory results obtained should be used in conjunction with other clinical information available to the physician, including confirmation by another method, as applicable. 8 REFERENCE VALUE <1:80 (Negative) 9 Test Performed by: [facility] [address] [place] [address] Global Cto: Matthew Bernard M.D. Ph.D.; CLIA# [id number] 10 Test Performed by: [facility] [address] [place] [address] Global Cto: Matthew Bernard M.D. Ph.D.; CLIA# [id number] 11 <5.0 Negative 5.0 - 25.0 Indeterminate (Repeat testing recommended after 72 hours) >25.0 Positive Perimenopausal women can display HCG levels of up to 20 mIU/mL 12 Because ethnic data is not always readily available, this report includes an eGFR for both -Americans and non- Americans. The National Kidney Disease Education Program (NKDEP) does not endorse the use of the MDRD equation for patients that are not between the ages of 18 and 70, are , have extremes of body size, muscle mass, or nutritional status, or are non- or non-. According to the National Kidney Foundation, irrespective of diagnosis, the stage of the disease is based on the level of kidney function: Stage Description GFR(mL/min/1.73 m(2)) 1 Kidney damage with normal or decreased GFR 90 2 Kidney damage with mild decrease in GFR 60-89 3 Moderate decrease in GFR 30-59 4 Severe decrease in GFR 15-29 5 Kidney failure <15 (or dialysis) 13 Total 25-Hydroxyvitamin D2 and D3 (25-OH-VitD) <10 ng/mL (severe deficiency) 10-19 ng/mL (mild to moderate deficiency) 20-50 ng/mL (optimum levels) 51-80 ng/mL (increased risk of hypercalciuria) >80 ng/mL (toxicity possible) 14 Normal Range 180 to 914 Indeterminate Range 145 to 180 Deficient Range <145 15 RESULT: Results suggest past infection. ADDITIONAL INFORMATION In most populations, at least 90% of the adult population will have been infected with EBV sometime in the past and therefore, will be positive for anti-VCA/IgG and anti- EBNA. Antibodies to EBNA develop 6-8 weeks after primary infection and remain present for life. Presence of VCA/ IgM antibodies indicates recent primary infection with EBV. Test Performed by: [place] [address] Global Cto: Matthew Bernard M.D. Ph.D.; CLIA# [id number] 16 SEE RESULT BELOW Name: ELIANE ALBRIGHT : [address]: Gemma Faria DO Acct: [id number] Unit: [id number] AGE: 33 Location: [facility] Re11/26/18 SEX: F Status: REG REF SPEC: [id number] ALBERTO: 11/26/18-[address]: Gemma Faria DO REQ: [id number] RECD: 11/26/18 STATUS: COMP _ SOURCE: URINE SPDESC: ORDERED: Urine Culture Procedure Result Reported Site Urine Culture Final 11/27/18- 1248 ML No Growth (<1,000 CFU/mL) * ML - Main Lab . END OF REPORT DEPARTMENT OF PATHOLOGY, [address] [place] [address] Manny Chan M.D. Director [facility] # [id number] 17 SEE RESULT BELOW Name: ELIANE ALBRIGHT : [address]: Gemma Faria DO Acct: [id number] Unit: [id number] AGE: 33 Location: [facility] Re11/26/18 SEX: F Status: REG REF SPEC: [id number] ALBERTO: 11/26/18 [facility] DR: Gemma Faria DO REQ: [id number] RECD: 11/26/18 STATUS: SOUT _ ORDERED: TP IMAGE ANALYS COMMENTS: [id number] FINAL DIAGNOSIS Negative for Intraepithelial lesion or Malignancy SPECIMEN(S) RECEIVED A. Ectocervical/Endocervical CYTOLOGY ADEQUACY Specimen Adequacy: Satisfactory of evaluation Transformation zone component identified CYTOLOGY PATIENT INFORMATION Patient Information: HPV: Thin Layer Pap Test w/reflex to high risk HPV RNA testing when ASCUS Actual Specimen Date: 11/26/18 Last Menstrual Date: 11/16/18 ?: N Post Menopausal?: N Hysterectomy?: N Signed by and Reported on: FIDE Almonte(ASCP) 1008 This Pap test was evaluated with the assistance of the [employer] Test Imaging System. Due to cytologic findings at the personnel counselor microscope, comprehensive manual rescreening by a Thai Masseur may be required. The Pap Smear is a screening test designed to aid in the detection of premalignant and malignant conditions of the uterine cervix. It is not a diagnostic procedure and should not be used as the sole means of detecting cervical cancer. Both false- positive and false- negative reports do occur. Depending on your risk status, a Pap smear should be obtained and evaluated every 1-3 years. END OF REPORT DEPARTMENT OF PATHOLOGY, [address] [place] [address] Manny Chan M.D. Director [facility] # [id number] Procedures Date Code Description Status 04/08/2019 93202 Admin Of Inj Completed 03/08/2019 26396 Admin Of Inj Completed 03/01/2019 99870 Admin Of Inj Completed 02/22/2019 83712 Admin Of Inj Completed 02/15/2019 82354 Admin Of Inj Completed 12/14/201839576 Inject/Drain Joint/Bursa Major W/O US Completed 12/14/201893200 Inject/Drain Joint/Bursa Major W/O US Completed Medical Devices Description No Information Available Encounters Type Date Location Provider Dx Diagnosis Office Visit 02/08/2019 [facility] Gemma Faria, E53.8 Deficiency of other 4:00p Medicine - Suite DO specified B group R vitamins B37.89 Other sites of candidiasis R53.83 Other fatigue B02.23 Postherpetic polyneuropathy Office Visit 12/14/2018 3:00p [facility] Gage F M75.52 Bursitis of at [place] MD Jason left shoulder M75.52 Bursitis of left shoulder S16.1xxA Strain of muscle, fascia and tendon at neck level, init S16.1xxA Strain of muscle, fascia and tendon at neck level, init M75.52 Bursitis of left shoulder Office Visit 11/26/2018 10:00a [facility] Gemma Faria, Z12.4 Encounter for Medicine - Suite DO screening for R malignant neoplasm of cervix R63.5 Abnormal weight gain Assessments Date Code Description Provider 04/14/2019 R10.11 Right upper quadrant pain Gemma Faria, 04/13/2019 R10.30 Lower abdominal pain, unspecified Robin Portillo M.D. 04/13/2019 R10.11 Right upper quadrant pain Robin Portillo M.D. 04/13/2019 R20.8 Other disturbances of skin sensation Robin Portillo M.D. 04/13/2019 M79.10 Myalgia, unspecified site Robin Portillo M.D. 04/13/2019 R76.0 Raised antibody titer Robin Portillo M.D. 04/08/2019 E53.8 Deficiency of other specified B group Nurse Visit [place] vitamins 04/08/2019 R53.83 Other fatigue Nurse Visit [place] 04/08/2019 B02.23 Postherpetic polyneuropathy Nurse Visit [place] 03/08/2019 E53.8 Deficiency of other specified B group Nurse Visit [place] vitamins 03/01/2019 E53.8 Deficiency of other specified B group Nurse Visit [place] vitamins 02/22/2019 E53.8 Deficiency of other specified B group Nurse Visit [place] vitamins 02/15/2019 E53.8 Deficiency of other specified B group Nurse Visit [place] vitamins 02/08/2019 E53.8 Deficiency of other specified B group Gemma Bienvenido, DO vitamins 02/08/2019 B37.89 Other sites of candidiasis Gemma Faria, DO 02/08/2019 R53.83 Other fatigue Gemma Faria, DO 02/08/2019 B02.23 Postherpetic polyneuropathy Gemma Faria DO 12/14/2018 M75.52 Bursitis of left shoulder Gage Gomez MD 12/14/2018 M75.52 Bursitis of left shoulder Gage Gomez MD 12/14/2018 S16.1xxA Strain of muscle, fascia and tendon at Gage Gomez MD neck level, initial encounter 12/14/2018 S16.1xxA Strain of muscle, fascia and tendon at Gage Gomez MD neck level, initial encounter 12/14/2018 M75.52 Bursitis of left shoulder Gage Gomez MD 11/26/2018 Z12.4 Encounter for screening for malignant Gemma Faria DO neoplasm of cervix 11/26/2018 R63.5 Abnormal weight gain Gemma Faria DO Plan of Treatment Future Appointment(s):2019 2:20 pm - Robin Portillo M.D. at [facility]04/21/2019 11:40 am - Gemma Faria DO at [facility] Internal Medicine - [address]/10/2019 4:00 pm - Nurse Visit [place] at [facility] Internal Medicine - Suite 04/14/2019 - Gemma Faria DOR10.11 Right upper quadrant painReferral:Krystal Smalls, FOLEY ARTIST, Family/FOLEY ARTIST Functional Status Description No Information Available Mental Status Description No Information Available Referrals Refer to Reason for Referral Status Appt Date Krystal Smalls NP Created [address] [place] [phone] [phone] Robin Portillo MD Sent 04/13/[address] [place] [address] [phone] Malik [place] MD Sent [address] [place] [address] [phone]
--- OUTSIDE RECORDS SUMMARY | 2019-04-19 09:12 | XMS REPORT | Continuity of Care Document ---
:1985 External Reference #:[id number] Author Name Robin Portillo M.D. 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 [phone] Problems Description No Information Available Social History Type Date Description Comments Sex Unknown ETOH Use Currently consumes alcohol Tobacco Use Start: Unknown Light tobacco smoker (10 or fewer cigarettes/day) Smoking Status Reviewed: 04/13/19 Light tobacco smoker (10 or fewer cigarettes/day) Allergies, Adverse Reactions, Alerts Description No Known Drug Allergies Medications Active Medications SIG Qnty Indications Ordering Date Provider Cyanocobalamin 1000 mcg 6ml E53.8 Gemma 02/08/2019 1000mcg/ML intramuscular Senbolivar, DO Solution weekly for one month, and then monthly for six months Fluconazole 1 tab by mouth once 1tabs B37.89 Gemma 02/08/2019 150mg Tablets Josener, DO Vitamin B12 1 by mouth every 30tabs Gemma 02/02/2019 1000mcg day Senner, DO Tablets ER Cyclobenzaprine HCL 1 by mouth daily as Unknown 5mg needed for neck and Tablets back pain Clonazepam 1 by mouth daily as Unknown 0.5mg Tablets needed, use sparingly Tylenol Extra Strength 2 tabs by mouth Unknown every 6 hours as 500mg Tablets needed [...] Every 8 Hours as Needed For Nausea Hydrocodone-Acetaminop Take 1 Tablet By Unknown hen Mouth Two Times 5-325mg Tablets Daily; Maximum Daily Dose Of 2 Per Day History Medications Amoxicillin/Clavulanate 10 ml twice a 200ml Wisam Plascencia MD 10/18/2018 - Potassium day for 7 days 11/26/2018 400-57mg/5ML Suspension Rec Medications Administered in Office Medication SIG Qnty Indications Ordering Provider Date B12 Provided By Patient Nurse Visit [place] 04/08/2019 Injection B12 Provided By Patient Nurse Visit [place] 03/08/2019 Injection B12 Provided By Patient Nurse Visit [place] 03/01/2019 Injection B12 Provided By Patient Nurse Visit [place] 02/22/2019 Injection B12 Provided By Patient Nurse Visit [place] 02/15/2019 Injection Depomedrol 40MG Gage Gomez MD 12/14/2018 Injection Depomedrol 40MG Gage Gomez MD 12/14/2018 Injection Immunizations Description No Information Available Vital Signs Date Vital Result Comment 04/13/2019 3:03pm Height 65.5 inches 5'5.50" Weight 126.12 lb Heart Rate 88 /min BP Systolic Sitting 98 mmHg BP Diastolic Sitting 62 mmHg Body Temperature 98.3 F Pain Level 8 O2 % BldC Oximetry 98 % BMI (Body Mass Index) 20.7 kg/m2 02/08/2019 4:05pm Height 65.5 inches 5'5.50" Weight 132.00 lb Heart Rate 74 /min BP Systolic Sitting 96 mmHg BP Diastolic Sitting 63 mmHg Body Temperature 97.7 F O2 % BldC Oximetry 99 % BMI (Body Mass Index) 21.6 kg/m2 Results Test Acquired Date Facility Test Result H/L Range Note Laboratory test 02/08/2019 [facility] Creatine 53 U/L Normal 10-[address] Kinase(CK) [place] [address] [phone] Lyme Screen W/ Reflex To WB Negative Negative Aldolase 4.2 U/L <7.7 1 Nuclear AB 02/08/2019 [facility] Nuclear Ab Positive 1:320 Abnormal 2 (Silvia) By [facility] [address] (Silvia) by [facility], [place] [address] IgG [phone] Silvia Titer: 1:320 Silvia Pattern: Homogeneous 3 Influenza A & B 02/08/2019 [facility] Influenza A NEGATIVE Negative 4, [address] [place] [address] [phone] Influenza B Molecular NEGATIVE Negative Flu AB Disclaimer (SEE NOTE) 6 Influenza A & B 02/08/2019 [facility] Flu AB Disclaimer (SEE NOTE) 7, [address] [place] [address] [phone] Influenza A Molecular NEGATIVE Negative 9 Influenza B Molecular NEGATIVE Negative CBC Auto 02/01/2019 [facility] White Blood 9.9 10^3/uL Normal 3.5-10.[address] [place] [address] [phone] Red Blood Count 4.11 10^6/uL Normal 3.70-4.87 [...] % 0.0 Laboratory test 02/01/2019 [facility] Erythrocyte Sed 11 mm/Hr Normal 0-[address] [place] [address] [phone] HCG < 0.60 mIU/mL 10 Comp Metabolic 02/01/2019 [facility] Sodium 137 mmol/L Normal 135-145 [place] [address] [phone] Potassium 3.9 mmol/L Normal 3.5-5.0 Chloride 106 [...] Egfr Non- 112.3 >60 Egfr 135.9 >60 11 Laboratory test 02/01/2019 [facility] Rheumatoid < 10 IU/mL Normal <15 [place] [address] [phone] C Reactive Protein 9.51 mg/L High <8.01 Vitamin D Total 25(Oh) 34.2 ng/mL Normal 20-50 12 Vitamin B12 152 pg/mL Low 180-914 13 Ebv Rimma Sweeney 02/01/2019 [facility] Ebv Capsid Positive Negative [place] [address] [phone] Ebv Capsid Ag IgM Ab Negative Negative Rimma-Sweeney Nuclear Antigen Positive Negative Rimma-Sweeney Virus Interp See Comment 14 Laboratory 11/26/2018 [facility] TSH (Thyroid 1.45 Normal 0.34 -5.[address] Stim Horm) mcIU/mL [place], [place] [id number] [phone] GC/Chlamydia 11/26/2018 [facility] Chlamydia Negative Negative Amplified [place] [address] Ashleigh [phone] Neisseria gonorrhoeae (GC) Ashleigh Negative Negative Urinalysis Profile 11/26/2018 [facility] Urine Color Yellow [address] [place] [address] [phone] Urine Appearance Clear Urine Specific [place] 1.016 Normal 1.010-1.030 Urine pH 5.0 Normal [...] Absent Urine Culture And 11/26/2018 [facility] Urine Culture SEE RESULT [address] [place] [address] [phone] Laboratory test 11/26/2018 [facility] Cytology SEE RESULT [address] [place] [address] [phone] 1 Test Performed by: [facility] - [place] [id number] Eyelet Operator: Matthew Bernard M.D. Ph.D.; CLIA# [id number] 2 REFERENCE VALUE <1:80 (Negative) 3 Test Performed by: [facility] - [facility] [address] [place] [address] Eyelet Operator: Matthew Bernard M.D. Ph.D.; CLIA# [id number] 4 NARES 5 Mutual Fund Accountant: [id number] 6 Suboptimal collection technique may reduce sensitivity of test. Refer to the [employer] Test Catalog for collection information: [email or web address] Defense As with all diagnostic procedures, the laboratory results obtained should be used in conjunction with other clinical information available to the physician, including confirmation by another method, as applicable. 7 [id number] 8 Suboptimal collection technique may reduce sensitivity of test. Refer to the [employer] Test Catalog for collection information: [email or web address] As with all diagnostic procedures, the laboratory results obtained should be used in conjunction with other clinical information available to the physician, including confirmation by another method, as applicable. 9 Mutual Fund Accountant: [id number] 10 <5.0 Negative 5.0 - 25.0 Indeterminate (Repeat testing recommended after 72 hours) >25.0 Positive Perimenopausal women can display HCG levels of up to 20 mIU/mL 11 Because ethnic data is not always readily [...] 15-29 5 Kidney failure <15 (or dialysis) 12 Total 25-Hydroxyvitamin D2 and D3 (25-OH-VitD) <10 ng/mL (severe deficiency) 10-19 ng/mL (mild to moderate deficiency) 20-50 ng/mL (optimum levels) 51-80 ng/mL (increased risk of hypercalciuria) >80 ng/mL (toxicity possible) 13 Normal Range 180 to 914 Indeterminate Range 145 to 180 Deficient Range <145 14 RESULT: Results suggest past infection. ADDITIONAL INFORMATION [...] primary infection with EBV. Test Performed by: [facility] - [address] [address] Eyelet Operator: Matthew Bernard M.D. Ph.D.; CLIA# [id number] 15 SEE RESULT BELOW Name: ELIANE ALBRIGHT : [address]: Gemma Faria DO Acct: [id number] Unit: [id number] AGE: 33 Location: [facility] Re11/26/18 SEX: F Status: REG REF SPEC: [id number] ALBERTO: 11/26/18-[address]: Gemma Faria DO REQ: [id number] RECD: 11/26/18 STATUS: COMP _ SOURCE: URINE SPDESC: ORDERED: Urine Culture Procedure Result Reported Site Urine Culture Final 11/27/18- 124 ML No Growth (<1,000 CFU/mL) * - Main Lab . END OF REPORT DEPARTMENT OF PATHOLOGY, [address] [place] [address] Manny Chan M.D. Director [facility] # [id number] 16 SEE RESULT BELOW Name: HOLLISELIANE Wero : [address]: Gemma Faria DO Acct: [id number] Unit: [id number] AGE: 33 Location: [facility] Re11/26/18 SEX: F Status: REG REF SPEC: [id number] ALBERTO: 11/26/18-[address]: Gemma Faria DO REQ: [id number] RECD: 11/26/18 STATUS: SOUT _ ORDERED: TP IMAGE ANALYS COMMENTS: [id number] FINAL DIAGNOSIS Negative for Intraepithelial lesion or [...] was evaluated with the assistance of the Pow HealthPrep Test Imaging System. Due to cytologic findings at the tanning drum operator microscope, comprehensive manual rescreening by a Boiler Out may be required. The Pap Smear is [...] years. END OF REPORT DEPARTMENT OF PATHOLOGY, [address] [place] [address] Manny Chan M.D. Director [facility] # [id number] Procedures Date Code Description Status 04/08/2019 30415 Admin Of Inj Completed 03/08/2019 83890 Admin Of Inj Completed 03/01/2019 22162 Admin Of Inj Completed 02/22/2019 52870 Admin Of Inj Completed 02/15/2019 08836 Admin Of Inj Completed 12/14/201809070 Inject/Drain Joint/Bursa Major W/O US Completed 12/14/201889747 Inject/Drain Joint/Bursa Major W/O US Completed Medical Devices Description No Information Available Encounters Type Date Location Provider Dx Diagnosis Office Visit 02/08/2019 Emir Faria, E53.8 Deficiency of other 4:00p Medicine - Suite DO specified B group R vitamins B37.89 Other sites of candidiasis R53.83 Other fatigue B02.23 Postherpetic polyneuropathy Office Visit 12/14/2018 3:00p [facility] Gage Reeves M75.52 Bursitis of at Vinay Gomez MD left shoulder M75.52 Bursitis of left shoulder S16.1xxA Strain of muscle, fascia and tendon at neck level, init S16.1xxA Strain of muscle, fascia and tendon at neck level, init M75.52 Bursitis of left shoulder Office Visit 11/26/2018 10:00a Emir Faria, Z12.4 Encounter for Medicine - Suite DO screening for R malignant neoplasm of cervix R63.5 Abnormal weight gain Assessments Date Code Description Provider 04/13/2019 R10.30 Lower abdominal pain, unspecified Robin Portillo M.D. 04/13/2019 R10.11 Right upper quadrant pain Robin Portillo M.D. 04/13/2019 R20.8 Other disturbances of skin sensation Robin Portillo M.D. 04/13/2019 M79.10 Myalgia, unspecified site Robin Portillo M.D. 04/08/2019 E53.8 Deficiency of other specified B group Nurse Visit [place] vitamins 04/08/2019 R53.83 Other fatigue Nurse Visit [place] 04/08/2019 B02.23 Postherpetic polyneuropathy Nurse Visit [place] 03/08/2019 E53.8 Deficiency of other specified B group Nurse Visit [place] vitamins 03/01/2019 E53.8 Deficiency of other specified B group Nurse Visit [place] vitamins 02/22/2019 E53.8 Deficiency of other specified B group Nurse Visit [place] vitamins 02/15/2019 E53.8 Deficiency of other specified B group Nurse Visit [place] vitamins 02/08/2019 E53.8 Deficiency of other specified B group Gemma Faria, DO vitamins 02/08/2019 B37.89 Other sites of candidiasis Gemma Faria, DO 02/08/2019 R53.83 Other fatigue Gemma Faria, DO 02/08/2019 B02.23 Postherpetic polyneuropathy Gemma Faria, DO 12/14/2018 M75.52 Bursitis of left shoulder [...] Robin Portillo M.D. at [facility]04/14/2019 9:00 am - Gemma Faria DO at [facility] Internal Medicine - [address]/21/2019 11:40 am - Gemma Faria DO at [facility] Internal Medicine - [address]/10/2019 4:00 pm - Nurse Visit [place] at [facility] Internal Medicine - Suite 04/13/2019 - Robin Portillo M.D.R10.30 Lower abdominal pain, gwwkxoqhhriV79.11 Right upper quadrant painR20.8 Other disturbances of skin luagqcwrgE13.10 Myalgia, unspecified site Functional Status Description No Information Available Mental Status Description No Information Available Referrals Refer to Reason for Referral Status Appt Date Robin Portillo MD Sent 04/13/[address] [place] [address] [phone] Malik Gunn MD Sent [address] [place] [address] [phone]
--- OUTSIDE RECORDS SUMMARY | 2019-04-19 09:12 | XMS REPORT ---
:1985 Author Organization [facility] Care Team Providers Name Role Phone Danelle Sethinda Primary Care Physician Unavailable Allergies, Adverse Reactions, Alerts Allergy Code CodeSystem Reaction Severity Criticality Status Start Substance Date Moderate Medications Medication Medication Medication Start Stop Route Dose Status Fill Code CodeSystem Date Date Instructions RxNorm Problems Problem Name Code CodeSystem Alternate Alternate Start End Status Narrative Code CodeSystem Date Date Adjustment 24048056 SNOMED-CT Active disorder with 3-22 depressed mood Tobacco use 40193999 SNOMED-CT Active 3- Unspecified 47159580 SNOMED-CT Active anxiety - disorder Relevant diagnostic tests/laboratory data Narrative No Information Procedures Procedure Code CodeSystem Target Date of Status Service Device Device Device Name Site Procedure Delivery Code Name UID Location Psychother 4221950 SNOMED-CT () 2018-10-13 completed Mental apy, 45 4 Health- minutes [place] with [facility] patient [address] [place] [address], [id number] [phone] Psychother [id number] SNOMED-CT () 2019-01-27 completed Mental apy, 45 4 Health- minutes [place] with [address], [id number] [id number] Psychother 2791865 SNOMED-CT () 2018-11-24 completed Mental apy, 45 4 Health- minutes [place] with [facility] patient [address] [place] [address], [id number] [phone] Psychother 2626914 SNOMED-CT () 2018-08-11 completed Mental apy, 45 4 Health- minutes [place] with [facility] patient [address] [place] [address], [id number] [phone] Psychother 1695424 SNOMED-CT () 2018-08-19 completed Mental apy, 45 4 Health- minutes [place] with [facility] patient [address] [place] [address], [id number] [phone] Psychother 3211786 SNOMED-CT () 2018-08-25 completed Mental apy, 45 4 Health- minutes [place] with [facility] patient [address] [place] [address], [id number] [phone] Psychother [id number] SNOMED-CT () 2018-06-30 completed Mental apy, 45 4 Health- minutes [place] with [facility] patient [address] [place] [address], [id number] [phone] Psychother 3912749 SNOMED-CT () 2018-07-14 completed Mental apy, 45 4 Health- minutes [place] with [facility] patient [address] [place] [address], [id number] [phone] Psychother 8685841 SNOMED-CT () 2018-11-11 completed Mental apy, 45 4 Health- minutes [place] with [facility] patient [address] [place] [address], [id number] [phone] Psychother 2282861 SNOMED-CT () 2018-12-01 completed Mental apy, 45 4 Health- minutes [place] with [facility] patient [address] [place] [address], [id number] [phone] Psychother 8405758 SNOMED-CT () 2018-12-14 completed Mental apy, 45 4 Health- minutes [place] with [facility] patient [address] [place] [address], [id number] [phone] Psychother 9999980 SNOMED-CT () 2018-07-21 completed Mental apy, 45 4 Health- minutes [place] with [facility] patient [address] [place] [address], [id number] [phone] Psychother 8993938 SNOMED-CT () 2018-07-07 completed Mental apy, 45 4 Health- minutes [place] with [facility] patient [address] [place] [address], [id number] [phone] Psychother 3256848 SNOMED-CT () 2018-06-16 completed Mental apy, 45 4 Health- minutes [place] with [facility] patient [address] [place] [address], [id number] [phone] Psychother 8500384 SNOMED-CT () 2018-09-01 completed Mental apy, 45 4 Health- minutes [place] with [facility] patient [address] [place] [address], [id number] [phone] Psychother 7670439 SNOMED-CT () 2018-09-08 completed Mental apy, 45 4 Health- minutes [place] with [facility] patient [address] [place] [address], [id number] [phone] Psychother 6627372 SNOMED-CT () 2018-09-24 completed Mental apy, 45 4 Health- minutes [place] with [facility] patient [address] [place] [address], [id number] [phone] Psychother 2945240 SNOMED-CT () 2018-09-29 completed Mental apy, 45 4 Health- minutes [place] with [facility] patient [address] [place] [address], [id number] [phone] Psychother 8565037 SNOMED-CT () 2018-10-29 completed Mental apy, 45 4 Health- minutes [place] with [facility] patient [address] [place] [address], [id number] [phone] Psychother 2499846 SNOMED-CT () 2018-11-03 completed Mental apy, 45 4 Health- minutes [place] with [facility] patient [address] [place] [address], [id number] [phone] SNOMED-CT () 2018-10-19 completed Mental Health- [place], [id number] [phone] SNOMED-CT () 2018-07-28 completed Mental Health- [place], [id number] [phone] SNOMED-CT () 2018-08-04 completed Mental Health- [place], [id number] [phone] SNOMED-CT () 2018-12-29 completed Mental Health- [place], [id number] [id number] SNOMED-CT () 2019-01-11 completed Mental Health- [place], [id number] [phone] SNOMED-CT () 2018-12-21 completed [facility] Health- [place], [id number] [phone] SNOMED-CT () 2019-01-[address], [id number] SNOMED-CT () 2019-02-[address], [id number] [id number] SNOMED-CT () 2019-02-[address], [id number] SNOMED-CT () 2018-10-[address], [id number] [id number] SNOMED-CT () 2018-07-[address], [id number] [phone] Encounters/Encounter Diagnoses Encounter Name Encounter Diagnosis Diagnosis Diagnosis Date of Service Code Code Name CodeSystem Diagnosis Delivery Location [facility] [address] [id number] Adjustment SNOMED-CT 2019-02-24 Behavioral Individual 30 disorder Health min with Clinic [address] [place], [place], [id number] Vital Signs No Information Social History Element Description Description Start End Code CodeSystem AdditionalInfo Date Date SexAssignedAtBirth Female F AdministrativeGender 05-17 Hospital Discharge Instructions Reason For Referral Medical Equipment FDA Assessments
--- OUTSIDE RECORDS SUMMARY | 2019-04-19 09:12 | XMS REPORT ---
:1985 Author Organization [facility] Care Team Providers Name Role Phone SUSHMA SUTTONNDA Primary Care Physician Unavailable Allergies, Adverse Reactions, Alerts Allergy Code CodeSystem Reaction Severity Criticality Status Start Substance Date Moderate Medications Medication Medication Medication Start Stop Route Dose Status Fill Code CodeSystem Date Date Instructions RxNorm Problems Problem Name Code CodeSystem Alternate Alternate Start End Status Narrative Code CodeSystem Date Date Adjustment 34863664 SNOMED-CT Active disorder with 06-04 depressed mood Unspecified 20590018 SNOMED-CT Active anxiety 06-09 disorder Tobacco use 83412590 SNOMED-CT Active 06-09 Relevant diagnostic tests/laboratory data Narrative No Information Procedures Procedure Code CodeSystem Target Date of Status Service Device Device Device Name Site Procedure Delivery Code Name UID Location Psychother [id number] SNOMED-CT () 2019-03-18 completed Mental apy, 45 4 Health- minutes [place] with [facility] patient [address] [place] [address], [id number] [phone] Psychother [id number] SNOMED-CT () 2019-03-25 completed Mental apy, 45 4 Health- minutes [place] with [address], [id number] [phone] Psychother 0882334 SNOMED-CT () 2018-10-13 completed Mental apy, 45 4 Health- minutes [place] with [facility] patient [address] [place] [address], [id number] [phone] Psychother 7100554 SNOMED-CT () 2019-01-27 completed Mental apy, 45 4 Health- minutes [place] with [facility] patient [address] [place] [address], [id number] [phone] Psychother 6261026 SNOMED-CT () 2018-11-24 completed Mental apy, 45 4 Health- minutes [place] with [facility] patient [address] [place] [address], [id number] [phone] Psychother [id number] SNOMED-CT () 2018-08-11 completed Mental apy, 45 4 Health- minutes [place] with [facility] patient [address] [place] [address], [id number] [phone] Psychother 8785625 SNOMED-CT () 2018-07-07 completed Mental apy, 45 4 Health- minutes [place] with [facility] patient [address] [place] [address], [id number] [phone] Psychother [id number] SNOMED-CT () 2018-06-16 completed Mental apy, 45 4 Health- minutes [place] with [facility] patient [address] [place] [address], [id number] [phone] Psychother 0983500 SNOMED-CT () 2018-06-30 completed Mental apy, 45 4 Health- minutes [place] with [facility] patient [address] [place] [address], [phone] [phone] Psychother 9905683 SNOMED-CT () 2018-07-14 completed Mental apy, 45 4 Health- minutes [place] with [facility] patient [address] [place] [address], [id number] [phone] Psychother 8643617 SNOMED-CT () 2018-10-29 completed Mental apy, 45 4 Health- minutes [place] with [facility] patient [address] [place] [address], [id number] [phone] Psychother 3076381 SNOMED-CT () 2018-11-03 completed Mental apy, 45 4 Health- minutes [place] with [facility] patient [address] [place] [address], [phone] Psychother 4694735 SNOMED-CT () 2018-11-11 completed Mental apy, 45 4 Health- minutes [place] with [facility] patient [address] [place] [address], [id number] [phone] Psychother 8024196 SNOMED-CT () 2018-12-01 completed Mental apy, 45 4 Health- minutes [place] with [facility] patient [address] [place] [address], [id number] [phone] Psychother 5614376 SNOMED-CT () 2018-12-14 completed Mental apy, 45 4 Health- minutes [place] with [facility] patient [address] [place] [address], [id number] [phone] Psychother 7650714 SNOMED-CT () 2018-07-21 completed Mental apy, 45 4 Health- minutes [place] with [facility] patient [address] [place] [address], [phone] [phone] Psychother 7634415 SNOMED-CT () 2018-08-19 completed Mental apy, 45 4 Health- minutes [place] with [facility] patient [address] [place] [address], [id number] [phone] Psychother 7292638 SNOMED-CT () 2018-08-25 completed Mental apy, 45 4 Health- minutes [place] with [facility] patient [address] [place] [address], [id number] [phone] Psychother 0672711 SNOMED-CT () 2018-09-01 completed Mental apy, 45 4 Health- minutes [place] with [facility] patient [address] [place] [address], [id number] [phone] Psychother 5048397 SNOMED-CT () 2018-09-08 completed Mental apy, 45 4 Health- minutes [place] with [facility] patient [address] [place] [address], [phone] [phone] Psychother 0415860 SNOMED-CT () 2018-09-24 completed Mental apy, 45 4 Health- minutes [place] with [facility] patient [address] [place] [address], [id number] [phone] Psychother 3161420 SNOMED-CT () 2018-09-29 completed Mental apy, 45 4 Health- minutes [place] with [facility] patient [address] [place] [address], [phone] [phone] SNOMED-CT () 2018-10-19 completed Mental Health- [place] [address], [id number] [phone] SNOMED-CT () 2018-07-28 completed Mental Health- [place] [address], [id number] [phone] SNOMED-CT () 2018-08-04 completed Mental Health- [place] [address], [id number] [id number] SNOMED-CT () 2018-12-[address], [id number] [id number] SNOMED-CT () 2019-01-[address], [id number] SNOMED-CT () 2018-12-[address], [id number] SNOMED-CT () 2019-01-[address], [id number] [id number] SNOMED-CT () 2019-02-[address], [phone] SNOMED-CT () 2019-02-[address], [id number] [phone] SNOMED-CT () 2018-10-[address], [id number] SNOMED-CT () 2018-07-[address], [id number] Encounters/Encounter Diagnoses Encounter Name Encounter Diagnosis Diagnosis Diagnosis Date of Service Code Code Name CodeSystem Diagnosis Delivery Location [facility] - [id number] Adjustment SNOMED-CT 2019-03-31 Behavioral Individual 30 disorder Health min with Clinic , , depressed , mood Vital Signs No Information Social History Element Description Description Start End Code CodeSystem AdditionalInfo Date Date SexAssignedAtBirth Female 0 F AdministrativeGender -04 Hospital Discharge Instructions Reason For Referral Medical Equipment FDA Assessments
--- OUTSIDE RECORDS SUMMARY | 2019-04-19 09:12 | XMS REPORT | Continuity of Care Document ---
:1985 External Reference #:[id number] Author Name Nurse Visit [facility] (transmitted by agent of provider Arielle Mcbride) Address [address] [facility] [place] [address] Care Team Providers Name Role Phone Gemma Faria DO - Hospitalist Care Team Information Obstetrics Tech Problems Description No Information Available Social History Type Date Description Comments Sex Unknown ETOH Use Currently consumes alcohol Tobacco Use Start: Unknown Light tobacco smoker (10 or fewer cigarettes/day) Smoking Status Reviewed: 02/08/19 Light tobacco smoker (10 or fewer cigarettes/day) Allergies, Adverse Reactions, Alerts Description No Known Drug Allergies Medications Active Medications SIG Qnty Indications Ordering Date Provider Cyanocobalamin 1000 mcg 30ml E53.8 Gemma 02/08/2019 1000mcg/ML intramuscular Bienvenido DO Solution weekly for one month, and then monthly for six months Fluconazole 1 tab by mouth once 1tabs B37.89 Gemma 02/08/2019 150mg Tablets Josener, DO Vitamin B12 1 by mouth every 30tabs Gemma 02/02/2019 1000mcg day Josener, DO Tablets ER Cyclobenzaprine HCL 1 by [...] for 7 days 11/26/2018 400-57mg/5ML Suspension Rec Ofloxacin (Otic) instill 5 5ml H60.8x Gemma 10/08/2018 - 0.3% Solution drops in to [facility], DO 11/26/2018 affected year twice a day Mometasone Furoate apply to 15gm [facility] 10/08/2018 - 0.1% Cream affected area [facility], DO 02/08/2019 once a day. Medications Administered in Office Medication SIG Qnty Indications Ordering Provider Date B12 Provided By Patient Nurse Visit [facility] 03/01/2019 Injection B12 Provided By Patient Nurse Visit [facility] 02/22/2019 Injection B12 Provided By Patient Nurse Visit [facility] 02/15/2019 Injection Depomedrol 40MG Gage Gomez MD 12/14/2018 Injection Depomedrol 40MG Gage Gomez MD 12/14/2018 Injection Immunizations Description No Information Available Vital Signs Date Vital Result Comment 02/08/2019 4:05pm Height 65.5 inches 5'5.50" Weight 132.00 lb Heart Rate 74 /min BP Systolic Sitting 96 mmHg BP Diastolic Sitting 63 mmHg Body Temperature 97.7 F O2 % BldC Oximetry 99 % BMI (Body Mass Index) 21.6 kg/m2 12/14/2018 3:48pm Height 65.5 inches 5'5.50" Weight 132.50 lb Heart Rate 74 /min BP Systolic 100 mmHg BP Diastolic 60 mmHg Respiratory Rate 12 /min Pain Level 7 BMI (Body Mass Index) 21.7 kg/m2 Results Test Acquired Date Facility Test Result H/L Range Note Laboratory test 02/08/2019 [facility] Creatine 53 U/L Normal 10-[address] Kinase(CK) [place] [address] [phone] Lyme Screen W/ Reflex To WB Negative Negative Aldolase 4.2 U/L <7.7 1 Nuclear AB 02/08/2019 [facility] Nuclear Ab Positive 1:320 Abnormal 2 (Silvia) By [facility] [address] (Silvia) by [facility], [place] [address] IgG [phone] Silvia Titer: 1:320 Silvia Pattern: Homogeneous 3 Influenza A & B 02/08/2019 [facility] Influenza A NEGATIVE Negative 4, [address] [place] [address] [phone] Influenza B Molecular NEGATIVE Negative Flu AB Disclaimer (SEE NOTE) 6 Influenza A & B 02/08/2019 [facility] Flu AB Disclaimer (SEE NOTE) 7, [address] [place] [address] [phone] Influenza A Molecular NEGATIVE Negative 9 Influenza B Molecular NEGATIVE Negative CBC Auto 02/01/2019 [facility] White Blood 9.9 10^3/uL Normal 3.5-10.[address] [place] [address] [phone] Red Blood Count 4.11 10^6/uL Normal 3.70-4.87 [...] Blood Cells % 0.0 Laboratory test 02/01/2019 [facility] Erythrocyte Sed 11 mm/Hr Normal 0-[address] [place] [address] [phone] HCG < 0.60 mIU/mL 10 Comp Metabolic 02/01/2019 [facility] Sodium 137 mmol/L Normal 135-[address] [place] [address] [phone] Potassium 3.9 mmol/L Normal 3.5-5.0 Chloride 106 [...] Egfr 135.9 >60 11 Laboratory test 02/01/2019 [facility] Rheumatoid < 10 IU/mL Normal <[address] [place] [address] [phone] C Reactive Protein 9.51 mg/L High <8.01 Vitamin D Total 25(Oh) 34.2 ng/mL Normal 20-50 12 Vitamin B12 152 pg/mL Low 180-914 13 Ebv Rimma Sweeney 02/01/2019 [facility] Ebv Capsid Positive Negative Comprehensive [address] [place] [address] [phone] Ebv Capsid Ag IgM Ab Negative Negative Rimma-Sweeney Nuclear Antigen Positive Negative Rimma-Sweeney Virus Interp See Comment 14 GC/Chlamydia 11/26/2018 [facility] Chlamydia Negative Negative Amplified Rna [address] [place] [address] [phone] Neisseria gonorrhoeae (GC) Ashleigh Negative Negative Urinalysis Profile 11/26/2018 [facility] Urine Color Yellow [address] [place], [place] [address] [phone] Urine Appearance Clear Urine Specific Vernon 1.016 Normal 1.010-1.030 Urine pH 5.0 Normal [...] Present Abnormal Absent Urine Culture And 11/26/2018 [facility] Urine Culture SEE RESULT [address] [place], [place] [id number] [phone] Laboratory test 11/26/2018 [facility] Cytology SEE RESULT [address] BEL[place], [place] [address] [phone] Laboratory test 11/26/2018 [facility] TSH (Thyroid 1.45 Normal 0.[address] Stim Horm) mcIU/mL -5.6 [place] [address] 0 [phone] Comp Metabolic 10/08/2018 [facility] Sodium 137 mmol/L Normal 135- Panel [address] [place], [place] [address] [phone] Potassium 3.9 mmol/L Normal 3.5-5.0 Chloride 104 mmol/L Normal 101-111 Co2 Carbon Dioxide 27 mmol/L Normal 22-32 Anion Gap 6 mmol/L Normal 2-11 Glucose 84 mg/dL Normal 70-100 Blood Urea Nitrogen 14 mg/dL Normal 6-24 Creatinine 0.55 mg/dL Normal 0.51-0.95 BUN/Creatinine Ratio 25.5 High 8-20 Calcium 9.0 mg/dL Normal 8.6-10.3 Total Protein 6.9 g/dL Normal 6.4-8.9 Albumin 4.3 g/dL Normal 3.2-5.2 Globulin 2.6 g/dL Normal 2-4 Albumin/Globulin Ratio 1.7 Normal 1-3 Total Bilirubin 0.60 mg/dL Normal 0.2-1.0 Alkaline Phosphatase 67 U/L Normal 34-104 Alt 21 U/L Normal 7-52 Ast 15 U/L Normal 13-39 Egfr Non- 126.5 >60 Egfr 153.1 >60 17 Laboratory test 10/08/2018 [facility] Hemoglobin A1c 5.5 % Normal 4.0-5.6 18 finding [address] [facility] (Glyco HGB) [place] [address] [phone] Urinalysis 10/08/2018 [facility] Urine Color Straw Profile [address] [place] [address] [phone] Urine Appearance Clear Urine Specific [place] 1.006 Low 1.010-1.030 Urine pH 6.0 Normal 5-9 Urine Urobilinogen Negative Negative Urine Ketones Negative Negative Urine Protein Negative Negative Urine Leukocytes Negative Negative Urine Blood 1+ Abnormal Negative Urine Nitrite Negative Negative Urine Bilirubin Negative Negative Urine Glucose Negative Negative Urine White Blood Cell Absent Absent Urine Red Blood Cell Trace(0-2/hpf) Absent Urine Bacteria Absent Absent Urine Squamous Epithelial Cell Present Abnormal Absent 1 Test Performed by: [facility] - [address] [address] Semiconductor Lab Technician: Matthew Bernard M.D. Ph.D.; CLIA# [id number] 2 REFERENCE VALUE <1:80 (Negative) 3 Test Performed by: [facility] - [facility] [address] [place] [address] Semiconductor Lab Technician: Matthew Bernard M.D. Ph.D.; CLIA# [id number] 4 DERRICK 5 Industrial Engineering Technician: [id number] Suboptimal collection technique may reduce sensitivity of test. Refer to the [employer] Test Catalog for collection information: [email or web address] As with all diagnostic procedures, the laboratory results obtained should be used in conjunction with other clinical information available to the physician, including confirmation by another method, as applicable. 7 [id number] 8 Suboptimal collection technique may reduce sensitivity of test. Refer to the [employer] Test Catalog for collection information: [email or web address] As with all diagnostic procedures, the laboratory results obtained should be used in conjunction with other clinical information available to the physician, including confirmation by another method, as applicable. 9 Industrial Engineering Technician: [id number] 10 <5.0 Negative 5.0 - 25.0 Indeterminate [...] primary infection with EBV. Test Performed by: [facility] - [facility] [address] [place] [address] Semiconductor Lab Technician: Matthew eBrnard M.D. Ph.D.; CLIA# [id number] 15 SEE RESULT BELOW Name: ELIANE ALBRIGHT: [address]: Gemma Faria DO Acct: [id number] Unit: [id number] AGE: 33 Location: [facility] Re11/26/18 SEX: F Status: REG REF SPEC: [id number] ALBERTO: 11/26/18-[address]: Gemma Faria DO REQ: [id number] RECD: 11/26/18 STATUS: COMP _ SOURCE: URINE SPDESC: ORDERED: Urine Culture Procedure Result Reported Site Urine Culture Final 11/27/18- 1247 ML No Growth (<1,000 CFU/mL) * - Main Lab . END OF REPORT DEPARTMENT OF PATHOLOGY, [address] [place] [address] Manny Chan M.D. Director [facility] # [id number] 16 SEE RESULT BELOW Name: ELIANE ALBRIGHT : [address]: Gemma Faria DO Acct: [id number] Unit: [id number] AGE: 33 Location: [facility] Re11/26/18 SEX: F Status: REG REF SPEC: [id number] ALBERTO: 11/26/18-[address]: Gemma Faria DO REQ: [id number] RECD: 11/26/18-1243 STATUS: SOUT _ ORDERED: TP IMAGE ANALYS COMMENTS: [id number] FINAL DIAGNOSIS Negative for Intraepithelial lesion or [...] was evaluated with the assistance of the [employer] Test Imaging System. Due to cytologic findings at the unit aide tech microscope, comprehensive manual rescreening by a Paint Tinter may be required. The Pap Smear is [...] years. END OF REPORT DEPARTMENT OF PATHOLOGY, [address] [place] [address] Manny Chan M.D. Director [facility] # [id number] 17 Because ethnic data is not always readily [...] 15-29 5 Kidney failure <15 (or dialysis) 18 Therapeutic target for the treatment of diabetes mellitus patients is <7% HBA1C, and in selective patients <6.0%. Please refer to [place] [employer] diabetic care guidelines for further information. 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 Office Visit 12/14/2018 3:00p [facility] Gage Reeves M75.52 Bursitis of at Vinay Gomez MD left shoulder M75.52 Bursitis of left shoulder S16.1xxA Strain of muscle, fascia and tendon at neck level, init S16.1xxA Strain of muscle, fascia and tendon at neck level, init M75.52 Bursitis of left shoulder Office Visit 11/26/2018 10:00a [facility] Internal Gemma Faria, Z12.4 Encounter for Medicine - Suite DO screening for R malignant neoplasm of cervix R63.5 Abnormal weight gain Office Visit 10/08/2018 10:20a [facility] Internal Gemma Faria, H60.8x1 Other otitis Medicine - Suite DO externa, right R ear F17.210 Nicotine dependence, cigarettes, uncomplicated R35.0 Frequency of micturition Assessments Date Code Description Provider 02/22/2019 E53.8 Deficiency of other specified B group Nurse Visit [facility] vitamins 02/15/2019 E53.8 Deficiency of other specified B group Nurse Visit [facility] vitamins 02/08/2019 E53.8 Deficiency of other specified [...] cervix 11/26/2018 R63.5 Abnormal weight gain Gemma Faria, 10/08/2018 H60.8x1 Other otitis externa, right ear Gemma Faria, 10/08/2018 F17.210 Nicotine dependence, cigarettes, Gemma Faria DO uncomplicated 10/08/2018 R35.0 Frequency of micturition Gemma Faria DO Plan of Treatment Future Appointment(s):04/13/2019 3:00 pm - Robin Portillo M.D. at [facility]03/08/2019 9:00 am - Nurse Visit [facility] [facility] at [facility] Internal Medicine - [address]104/10/2018 - Gemma Faria DOE53.8 Deficiency of other specified B group vitaminsNew Medication:Cyanocobalamin 1000 mcg/ML - 1000 mcg intramuscular weekly for one month, and then monthly for six udstruI67.89 Other sites of candidiasisNew Medication:Fluconazole 150 mg - 1 tab by mouth onceR53.83 Other dwguglzD79.23 Postherpetic polyneuropathy Functional Status Description No Information Available Mental Status Description No Information Available Referrals Refer to Dr Reason for Referral Status Appt Date Robin Portillo MD Sent 04/13/2019 [address] [place] [address] [place] [address] [phone] Malik Gunn MD Sent [address] [place] [address] [place] [address] [phone]
[2019-04-19] MEDS ORDERED: Lidocaine 2% VISCOUS* 15 ML UDC PO ONE (09:29)
[2019-04-19] MEDS ORDERED: Ketorolac INJ* 30 MG/ML 1 ML VIAL IV PUSH ONE (09:29)
[2019-04-19] MEDS ORDERED: Al Hydrox/Mg Hydrox/Simet LIQ* 30 ML UDC PO ONE (09:29)
[2019-04-19] MEDS ORDERED: NS 0.9% 1000 ML** 1,000 ML IV ONE (09:29)
--- NOTE | 2019-04-19 09:38 | ED ---
HPI Chest Pain - HPI Summary HPI Summary: The patient is a 33 year-old female presenting to [facility] with a chief complaint of sudden onset chest pain beginning an hour ago. The pain is located in the mid sternal chest and does not radiate. She endorses nausea but denies any vomiting, diarrhea, abdominal pain, fever, chills, shortness of breath, cough, calf pain, or calf swelling. Currently, the sharp pain is rated 10/10 in severity without any alleviating or aggravating factors. There is no burning pain. She has not experienced this pain before, but she did have a possible passing of a gallstone last week, which she saw her PCP for after experiencing severe RUQ pain that has since subsided. She does not have a known history of gallstones, but she has not had a gallbladder [place]. Her last meal was last night. No history of blood clots or GERD. No recent travel, no oral contraceptive use. Past medical history includes kidney stones. Family history of hypertension. Former smoker, occasional EtOH, no substance use. Medications reviewed. Allergies noted. - History of Current Complaint Chief Complaint: EDChestPainROMI Time Seen by Provider: 04/19/19 09:18 Hx Obtained From: Patient Hx Last Menstrual Period: 02/17/18 Onset/Duration: Started Minutes Ago, Still Present Timing: Constant Initial Severity: Severe Current Severity: Severe Pain Intensity: 10 Pain Scale Used: 0-10 Numeric Chest Pain Location: Mid Sternal Chest Pain Radiates: No Character: Sharp/Stabbing Aggravating Factor(s): Nothing Alleviating Factor(s): Nothing Associated Signs and Symptoms: Positive: Chest Pain, Nausea. Negative: Shortness of Breath, Fever, Chills, Cough, Abdominal Pain, Vomiting, Other: - diarrhea, calf pain or swelling - Allergy/Home Medications Allergies/Adverse Reactions: Allergies Allergy/AdvReac Type Severity Reaction Status Date / Time No Known Allergies Allergy Verified 12/03/18 15:09 Home Medications: Home Medications Clindamycin Cap(NF) [Clindamycin Cap 300 mg Cap(NF)] 300 mg PO QID 04/19/19 [ History Confirmed 04/19/19] Cyanocobalamin INJ * [Vitamin B12 INJ *] 1,000 mcg IM MONTHLY 04/19/19 [History Confirmed 04/19/19] PMH/Surg Hx/FS Hx/Imm Hx Endocrine/Hematology History: Denies: Hx Anticoagulant Therapy, Hx Diabetes Cardiovascular History: Denies: Hx Cardiac Arrest, Hx Hypertension, Hx Pacemaker/ICD Respiratory History: Reports: Hx Seasonal Allergies, Other Respiratory Problems/ Disorders - upper respiratory infection- recently resolved History: Reports: Hx Kidney Stones - right kidney Denies: Hx Dialysis, Hx Renal Disease Musculoskeletal History: Reports: Hx Arthritis, Hx Tendonitis - left wrist Sensory History: Denies: Hx Contacts or Glasses, Hx Legally Blind, Hx Deafness, Hx Hearing Aid Opthamlomology History: Denies: Hx Contacts or Glasses, Hx Legally Blind Neurological History: Reports: Hx Migraine Denies: Hx Developmental Delay Psychiatric History: Reports: Hx Anxiety Denies: Hx Panic Disorder - Cancer History Hx Chemotherapy: No - Surgical History Surgical History: Yes Surgery Procedure, Year, and Place: [facility], September 2017 - [facility] [place] Infectious Disease History: No Infectious Disease History: Denies: Traveled Outside the [place] in Last 30 Days - Family History Known Family History: Positive: Hypertension, Diabetes, Other - kidney stones - Social History Alcohol Use: Occasionally Hx Substance Use: No Substance Use Type: Reports: None Hx Tobacco Use: Yes Smoking Status (MU): Former Smoker Have You Smoked in the Last Year: No Review of Systems Negative: Fever, Chills Positive: Chest Pain - mid sternal Negative: Shortness Of Breath, Cough Positive: Nausea. Negative: Abdominal Pain, Vomiting, Diarrhea Negative: Myalgia - calves, Edema All Other Systems Reviewed And Are Negative: Yes Physical Exam - Summary Physical Exam Summary: Constitutional: Well-developed, Well-nourished, Alert. (-) Distressed Skin: Warm, Dry HENT: Normocephalic; Atraumatic Eyes: Conjunctiva normal Neck: Musculoskeletal ROM normal neck. (-) JVD, (-) Stridor, (-) Tracheal deviation Cardio: Rhythm regular, rate normal, Heart sounds normal; Intact distal pulses; The pedal pulses are 2+ and symmetric. Radial pulses are 2+ and symmetric. (-) Murmur Pulmonary/Chest wall: Effort normal. (-) Respiratory distress, (-) Wheezes, (-) Rales Abd: Soft, (-) tenderness, (-) Distension, (-) Guarding, (-) Rebound Musculoskeletal: (-) Edema Lymph: (-) Cervical adenopathy Neuro: Alert, Oriented x3 Psych: Mood and affect Normal Triage Information Reviewed: Yes Vital Signs On Initial Exam: Initial Vitals Temp Pulse Resp BP Pulse Ox 98.6 F 96 30 111/63 100 04/19/19 09:11 04/19/19 09:11 04/19/19 09:11 04/19/19 09:11 04/19/19 09:11 Vital Signs Reviewed: Yes Procedures - Sedation Patient Received Moderate/Deep Sedation with Procedure: No Diagnostics - Vital Signs Vital Signs Temp Pulse Resp BP Pulse Ox 04/19/19 09:11 98.6 F 96 30 111/63 100 - Laboratory Result Diagrams: 04/19/19 09:38 04/19/19 09:38 Lab Statement: Any lab studies that have been ordered have been reviewed, and results considered in the medical decision making process. - Radiology CXR Radiology Interpretation Completed By: Radiologist Summary of Radiographic Findings: Impression: No active cardiopulmonary disease. ED physician has reviewed this report. - EKG 0903 Cardiac Rate: NL - 100 BPM EKG Rhythm: Sinus Rhythm Summary of EKG Findings: EKG at 0903 reveals sinus rhythm at rate of 100 BPM, no ischemic changes. Dr. Theodore has reviewed and interpreted this EKG. Re-Evaluation - Re-Evaluation First Eval Re-Evaluation Time: 15:10 Comment: We discussed results and plan for discharge. Chest Pain Course/Dx - Course Course Of Treatment: Patient is a 33 year-old female presenting with sharp mid sternal chest pain that does not radiate onset an hour ago. Pain is accompanied by nausea, but she is otherwise asymptomatic. No history of cardiac disease, GERD, or known gallstones. Physical exam is not significant for any acute findings. IV access obtained. Patient administered fluids, Toradol, and GI cocktail. Blood work obtained within normal limits. Negative troponin. An EKG at 0903 reveals sinus rhythm at rate of 100 BPM, no ischemic changes. CXR is negative. Second troponin is negative. Patient is safe for discharge. Patient agrees with plan. She has a follow up with GI tomorrow. - Diagnoses Provider Diagnoses: Chest pain, Dyspepsia Discharge ED - Sign-Out/Discharge Documenting (check all that apply): Patient Departure - Patient will be discharged home. - Discharge Plan Condition: Stable Disposition: HOME Patient Education Materials: Chest Pain (DC), Indigestion (ED) Referrals: Gemma Faria DO [Primary Care Provider] - 3 Days Additional Instructions: Follow up with your GI doctor tomorrow as you have scheduled. Follow up with your primary care provider in 1-2 days. Return to the emergency department for any new or worsening symptoms. - Billing Disposition and Condition Condition: STABLE Disposition: Home - Attestation Statements Document Initiated by Jovanna: Yes Documenting Scribe: Cinda Kim Provider For Whom Jovanna is Documenting (Include Credential): Dr. Lance Theodore DO Scribe Attestation: Cinda Jensen scribed for Dr. Lance Theodore DO on 04/19/19 at 1334. Scribe Documentation Reviewed: Yes Provider Attestation: The documentation as recorded by the Cinda paul accurately reflects the service I personally performed and the decisions made by me, Dr. Lance Theodore DO Status of Scribe Document: Viewed
[2019-04-19 09:55] LABS: ABS Eosinophils 0.2 10^3/ul (0-0.6); ABS Lymphocytes 1.7 10^3/ul (1.0-4.8); ABS Monocytes 0.5 10^3/ul (0-0.8); ABS Neutrophils 2.2 10^3/ul (1.5-7.7); Eosinophil % 5.2 %; Hematocrit 37 % (35-47); Hemoglobin 12.6 g/dL (12.0-16.0); Lymphocyte % 36.5 %; Mean Corpuscular HGB Conc 34 g/dL (31-36); Mean Corpuscular Hemoglobin 33 pg (27-31); Mean Corpuscular Volume 96 fL (80-97); Mean Platelet Volume 8.4 fL (7.4-10.4); Platelet Count 216 10^3/uL (150-450); Red Blood Count 3.88 10^6 /uL (3.70-4.87); Red Cell Distribution Width 13 % (10-15); White Blood Count 4.6 10^3/uL (3.5-10.8)
[2019-04-19 10:04] LABS: INR 1.07 (0.82-1.09)
[2019-04-19 10:15] LABS: Albumin 4.1 g/dL (3.2-5.2); Albumin/Globulin Ratio 1.6 (1-3); BUN/Creatinine Ratio 22.8 (8-20); Calcium 8.9 mg/dL (8.6-10.3); EGFR African American 146.9 (>60); EGFR Non-African American 121.4 (>60); Globulin 2.6 g/dL (2-4); Potassium 3.8 mmol/L (3.5-5.0); Total Bilirubin 0.6 mg/dL (0.2-1.0); Total Protein 6.7 g/dL (6.4-8.9)
[2019-04-19 13:53] VITALS: BP 93/58
== END 2019-04-19 13:52 | disposition home or self-care (01) ==
LOC: ED 09:02
DX: R07.9 Chest pain, unspecified (principal); R10.13 Epigastric pain; F41.9 Anxiety disorder, unspecified; Z87.891 Personal history of nicotine dependence
CPT/HCPCS: 36415; 71045; 80053; 83690; 84484; 84702; 85025; 85610; 93005; 96361; 96374; 99283; A9270-GY; J1885

== ENCOUNTER 2021-03-24 14:38 | Inpatient (IN) ==
[2021-03-24] MEDS ORDERED: Buffered Lidocaine 1% SYRIN 1 ml INTRADERM ONE (16:19)
[2021-03-24] MEDS ORDERED: Lactated Ringers 1000 ml BAG 1,000 ML IV ONE (16:25)
[2021-03-24] MEDS ORDERED: Dinoprostone 10 MG VAG.SUPP VAGINAL ONE (16:26)
[2021-03-24 18:08] LABS: Urine Benzodiazepine Screen None Detected (None Detect); Urine Cannabinoids Screen Presumptive Positive (None Detect); Urine Opiates Screen None Detected (None Detect)
[2021-03-25] MEDS ORDERED: Promethazine INJ(RESTRICTED) 25 MG/ML 1 ml VIAL IM ONE (02:16)
[2021-03-25] MEDS ORDERED: Nalbuphine 10 MG/ML 1 ML VIAL IM ONE (02:16)
[2021-03-25] MEDS ORDERED: Oxytocin in LR 0 UNITS/0 ML BAG IVPB ONE (04:26)
[2021-03-25] MEDS ORDERED: Dibucaine 1% OINT 28.35 GM TUBE PR PRN (05:02)
[2021-03-25] MEDS ORDERED: Witch Hazel PAD JAR TOPICAL PRN (05:02)
[2021-03-25] MEDS ORDERED: Glycerin ADULT 2.4 gm SUPP PR PRN (05:02)
[2021-03-25] MEDS ORDERED: Lactated Ringers 1000 ml BAG 1,000 ML IV SCH (06:00)
[2021-03-25] MEDS ORDERED: Oxytocin 10 UNITS/ML 1 ML VIAL ONE (18:27)
[2021-03-26 07:14] LABS: Hematocrit 32 % (35-47); Hemoglobin 11.4 g/dL (12.0-16.0); Mean Corpuscular HGB Conc 35 g/dL (31-36); Mean Corpuscular Hemoglobin 34 pg (27-31); Mean Corpuscular Volume 97 fL (80-97); Mean Platelet Volume 8.3 fL (7.4-10.4); Platelet Count 264 10^3/uL (150-450); Red Blood Count 3.33 10^6 /uL (3.70-4.87); Red Cell Distribution Width 13 % (10-15); White Blood Count 13.9 10^3/uL (3.5-10.8)
[2021-03-26 07:23] LABS: ABS Basophils 0.1 10^3/ul (0-0.2); ABS Eosinophils 0.2 10^3/ul (0-0.6); ABS Lymphocytes 2.6 10^3/ul (1.0-4.8); ABS Monocytes 1.6 10^3/ul (0-0.8); ABS Neutrophils 9.3 10^3/ul (1.5-7.7); Eosinophil % 1.7 %
[2021-03-27 08:45] VITALS: BP 130/72
== END 2021-03-27 11:37 | disposition home or self-care (01) | DRG 560 ==
LOC: MCHOBOUT 14:38 → MCHOB 16:32
PROVIDERS: ADMIT Midwife; ATTEND Midwife